=== PATIENT | female | born 1990 | race Caucasian/White ===

== ENCOUNTER 2017-09-11 21:41 | Emergency (ER) | payer SELFPAY ==
[2017-09-11 21:43] VITALS: BP 121/73; PULSE 81; RESP 14; TEMP 36.6; O2SAT 100; BMI 30.4
[2017-09-11 22:06] LABS: Bacteria 0 SEEN /hpf (None Seen); Mucous, Urine 0 SEEN /hpf (<or=2+); Red Blood Cells-Urine 0 SEEN /hpf (0-5)
[2017-09-11 22:07] LABS: Color, Urine Yellow (Yellow); Glucose, Dipstick Normal (Normal); Ketone-Dipstick Negative (Negative); Leukocyte Esterase-Dipstick 25 /ul (Negative); Nitrite-Dipstick Negative (Negative); Occult Blood-Urine 10 /ul (Negative); Protein-Dipstick Negative (Negative); Urine Bilirubin Dipstick Negative (Negative); Urine Clarity Clear (Clear); Urine Urobilinogen 1 mg/dl (Normal)
[2017-09-11 22:10] LABS: Internal QC Validated? YES +Cl - CLEAR BKGD; Pregnancy, Urine Negative Negative
[2017-09-11 22:14] LABS: Squamous Epithelial Cells - UA 0-5 SEEN /hpf (5-10); White Blood Cells 0-5 SEEN /hpf (0-5)
--- NOTE | 2017-09-11 22:35 | ED.VISSUMM ---
- ER Visit Summary Date of Service: 09/11/17 Chief Complaint: [] Possible kidney infection History of Present Illness: The patient is a 26 F [] complaining of possible kidney infection since yesterday. She has dysuria yesterday but not today. She has bilateral lower back soreness. Gradual onset sharp and aching and dull. She wanted to make sure she did not have a UTI. No home treatment. Denies or other symptoms Physical Examination: [] Vital signs reviewed General: Well-nourished well-developed Head: Normocephalic atraumatic Eyes: Pupils equal round and reactive to light extraocular movements intact ENT: TMs clear no hemotympanum no trauma Neck: Nontender full range of motion Cardiovascular: Regular rate rhythm no murmurs normal S1-S2 Respiratory: No distress clear to auscultation bilaterally chest nontender Abdomen: Soft nontender nondistended normal bowel sounds no masses Back: Nontender no CVA tenderness Extremities: Nontender active range of motion ?4 extremities no trauma Skin: Normal color no trauma Neuro alert oriented cranial nerves II through XII intact normal strength sensation reflexes Test Results: [] Emergency Department Course and Treatment: [] Is resting comfortably. She does have some soreness in her back when she moves. Urinalysis shows no evidence of infection no blood in the urine to suggest a kidney stone. is negative. Given Tylenol. At this time I think she strained her back. We will continue anti-inflammatories rest and ice. Treatment Plan: [] Disposition: [] Impression: [] Lumbar back strain This note was generated with [employer] dictation software. It may contain incorrect words, spelling, and punctuation that were not noted in review of the chart prior to signing ED Disposition - Plan for ED Patient: Chief Complaint: Flank Pain Referrals: Garrett Read MD [Primary Care Provider] -
--- NOTE | 2017-09-11 22:36 | ED.DEP ---
ED Disposition - Plan for ED Patient: Disposition: Home or Assisted Living Chief Complaint: Flank Pain Instructions: ED Sprain Strain Lumbar Referrals: Garrett Read MD [Primary Care Provider] -
[2017-09-11] MEDS: Acetaminophen 500 MG Tablet 1000 MG PO (22:37)
[2017-09-11 22:52] VITALS: BP 120/60; PULSE 82; RESP 18; O2SAT 99
== END 2017-09-11 22:52 | disposition home or self-care (01) ==
PROVIDERS: Emergency Medicine; Emergency Provider Emergency Medicine; Family Provider Family Medicine; PCP Family Medicine
DX: S39.012A Strain of muscle, fascia and tendon of lower back, initial encounter (principal); X58.XXXA Exposure to other specified factors, initial encounter; Y93.89 Activity, other specified; Y92.89 Other specified places as the place of occurrence of the external cause; Y99.8 Other external cause status
CPT/HCPCS: 81001; 81025; 99283

== ENCOUNTER → 2017-12-16 15:03 | Outpatient (CLI) | payer MEDICAID, SELFPAY ==
[2017-12-16 17:20] LABS: Hematocrit 35.9 % (37-47); Mean Corp Hgb Conc 33.4 g/gl (32-36); Mean Corpuscular Hgb 29.1 pg (27.0-32.0); Mean Corpuscular Volume 87.1 fL (81-99); Mean Platelet Vol. 11.5 fl (6.2-12.0); Platelet Count 171 K/mm3 (150-450); RBC Distribution Width CV 13.1 % (11.6-14.6); RBC Distribution Width SD 41.9 fl (35.1-43.9); Red Blood Count 4.12 M/mm3 (4.2-5.4); White Blood Count 7.5 K/mm3 (4.4-11.0)
[2017-12-16 17:21] LABS: Scan Indicated on CBC? Y/N NO
[2017-12-16 17:36] LABS: Thyroid Stim Hormone (TSH) 1.71 uIU/mL (0.358-3.74)
[2017-12-19 14:11] LABS: HPV Reflexed? NOT INDICATED
== END ==
PROVIDERS: Visit Provider Obstetrics & Gynecology
DX: N92.6 Irregular menstruation, unspecified (principal); Z12.4 Encounter for screening for malignant neoplasm of cervix
CPT/HCPCS: 36415; 84443; 85027; 88175; G0145

== ENCOUNTER 2018-04-10 20:44 | Emergency (ER) | payer MEDICAID, SELFPAY ==
[2018-04-10 20:45] VITALS: BP 142/70; PULSE 80; RESP 16; TEMP 36.7; O2SAT 99; BMI 26.6
--- NOTE | 2018-04-10 21:51 | ED.VISSUMM ---
- ER Visit Summary Date of Service: 04/10/18 Chief Complaint: Rectal bleeding History of Present Illness: The patient is a 27 F no dyspnea past medical history. He is never had a colonoscopy. Patient states tonight she went to the toilet to have a bowel movement and noticed brown stool mixed with blood. Denies any clots. There is bright red blood. No black stool. No nausea. No abdominal pain. She is never had rectal bleeding before. She denies any bruising, bleeding from her gums, nosebleeds or hematuria. She is on no blood thinners. She denies any rectal trauma. She denies any straining or having hard stools or constipation. She has no history of polyps or hemorrhoids. Denies feeling lightheaded or dizzy. Physical Examination: Young female no acute distress. Significant other present in the room. Vital signs are stable and afebrile. HEENT exam unremarkable. Neck nontender. Lungs clear to auscultation bilaterally. Heart regular rate and rhythm no murmur rate about 80. Abdomen soft. Nontender. Nondistended. Normal bowel sounds no peritoneal signs. Patient moving all 4 extremities. Neurovascular intact. Skin unremarkable. No petechiae or purpura. No bruising. No rashes. Neurologically she is awake alert with no focal motor deficit. Back exam is nontender. Rectal exam done with her male significant other present in the room she had noticed gross blood on rectal exam. There were no external hemorrhoids. I did not feel any internal rectal masses. I did not see if seizure. And clinically this is not a seizure. Test Results: None. Emergency Department Course and Treatment: Patient just had bleeding about an hour ago. It was not severe. I do not think a blood count is necessary. She will follow-up with the [facility] with Dr. Kaity Mendez for rectal bleeding and possible endoscopy. Treatment Plan: Return if feeling a lot worse or feels lightheaded. Otherwise warm soaks. Outpatient follow-up for possible endoscopy Disposition: Discharge Impression: Rectal bleeding of uncertain etiology This note was generated with [employer] dictation software. It may contain incorrect words, spelling, and punctuation that were not noted in review of the chart prior to signing ED Disposition - Plan for ED Patient: Referrals: Garrett Read MD [Primary Care Provider] -
--- NOTE | 2018-04-10 21:54 | ED.DCSUM_ITS ---
- ER Visit Summary Date of Service: 04/10/18 Chief Complaint: Rectal bleeding History of Present Illness: The patient is a 27 F no dyspnea past medical history. He is never had a colonoscopy. Patient states tonight she went to the toilet to have a bowel movement and noticed brown stool mixed with blood. Denies any clots. There is bright red blood. No black stool. No nausea. No abdominal pain. She is never had rectal bleeding before. She denies any bruising, bleeding from her gums, nosebleeds or hematuria. She is on no blood thinners. She denies any rectal trauma. She denies any straining or having hard stools or constipation. She has no history of polyps or hemorrhoids. Denies feeling lightheaded or dizzy. Physical Examination: Young female no acute distress. Significant other present in the room. Vital signs are stable and afebrile. HEENT exam unremarkable. Neck nontender. Lungs clear to auscultation bilaterally. Heart regular rate and rhythm no murmur rate about 80. Abdomen soft. Nontender. Nondistended. Normal bowel sounds no peritoneal signs. Patient moving all 4 extremities. Neurovascular intact. Skin unremarkable. No petechiae or purpura. No bruising. No rashes. Neurologically she is awake alert with no focal motor deficit. Back exam is nontender. Rectal exam done with her male significant other present in the room she had noticed gross blood on rectal exam. There were no external hemorrhoids. I did not feel any internal rectal masses. I did not see if seizure. And clinically this is not a seizure. Test Results: None. Emergency Department Course and Treatment: Patient just had bleeding about an hour ago. It was not severe. I do not think a blood count is necessary. She will follow-up with the [facility] with Dr. Kaity Mendez for rectal bleeding and possible endoscopy. Treatment Plan: Return if feeling a lot worse or feels lightheaded. Otherwise warm soaks. Outpatient follow-up for possible endoscopy Disposition: Discharge Impression: Rectal bleeding of uncertain etiology This note was generated with [employer] dictation software. It may contain incorrect words, spelling, and punctuation that were not noted in review of the chart prior to signing ED Disposition - Plan for ED Patient: Referrals: Garrett Read MD [Primary Care Provider] -
--- NOTE | 2018-04-10 21:54 | ED.DEP ---
ED Disposition - Plan for ED Patient: Disposition: Home or Assisted Living Instructions: ED Hematochezia Stable Referrals: Kaity Mendez MD [STAFF PHYSICIAN] - As soon as possible Additional Instructions: Call follow-up with the [facility] in [place] for possible colonoscopy to see if they see any source of bleeding such as a polyp, internal hemorrhoid or other. You may have some more bleeding elicits severe or you feel lightheaded or dizzy follow-up as an outpatient. If you are feeling worse return to the ER.
[2018-04-10 21:57] VITALS: RESP 16
== END 2018-04-10 21:58 | disposition home or self-care (01) ==
PROVIDERS: Emergency Provider Emergency Medicine; Family Provider Family Medicine; PCP Family Medicine
DX: K62.5 Hemorrhage of anus and rectum (principal)
CPT/HCPCS: 99282

== ENCOUNTER 2018-07-22 10:14 | Day surgery (SDC) | payer MEDICAID, SELFPAY ==
--- NOTE | 2018-07-16 13:49 | PCM.HPOB.BLA ---
History and Physical Date of Admission: 07/22/18 LORE COUGHLIN Date of : 1990 PREOP HISTORY AND PHYSICAL EXAM On 07/16/2018, Lore Coughlin, a 27 year old female 4 1 1 0 5, presented for: -- Lore is being seen for pre op visit. Pt to have LAVH/BS on 07-22-18. Medications and allergies are up to date. Consents signed for surgery and information reviewed. AM -- irregular bleeding which is ongoing. Lore claims it started gradually and has been present on going. It occurs all the time. It is located in the vagina and is non-radiating. Lore characterizes the quality of the irregular bleeding as passing clots, heavy bleeding. Severity is worsening. An associated sign and symptom is passing clots, pain. Additional comment: patient tried OCP but no relief. As above. Here for preop appt prior to planned LAVH, bilateral salpingectomy. She has irregular bleeding, pain and painful periods. Prior BTO by William nuñez. Reviewed R,B,A of planned procedure. Discussed anticipated preop, operative, and postop courses including activity restrictions. EB ALLERGIES: NKDA MEDICATIONS HISTORY: Current medications prescribed by our practice are: 1. Anaprox DS 550 mg tablet, 1 po bid prn dysmenorrhea REVIEW OF SYSTEMS: GENERAL - Denies fever, or chills SKIN - Denies skin changes EYES - Denies visual changes EARS - Denies difficulty hearing NOSE - Denies nasal congestion or bleeding MOUTH - Denies sore throat or difficulty swallowing NECK - Denies pain or swelling RESPIRATORY - Denies shortness of breath or wheezing CARDIOVASCULAR - Denies palpitations or chest pain GASTROINTESTINAL - Denies nausea, vomiting, diarrhea, constipation GENITOURINARY - Denies dysuria, frequency of urination, incontinence of urine MUSCULOSKELETAL - Denies joint or muscle pain NEUROLOGICAL - Denies localized numbness or weakness PSYCHIATRIC - Denies depression or anxiety ENDOCRINE - Denies heat or cold intolerance, weight loss or gain HEMATO-IMMUNOLOGIC - Denies excessive bleeding with cuts SURGICAL HISTORY: 1. 10/26/2013 JENNIFER Corona M.D. 2. 03/01/2015 Lap BTO with William Corona M.D. MENSTRUAL HISTORY: LMP Known?- DefiniteAmount/Duration - prolonged, Regularity - bleeds between periods, LMP - 05/10/18, Age Onset Menarche - 12 FAMILY HISTORY: Maternal Grandparent - Kidney disorder; Maternal Grandparent - FH: Diabetes mellitus type 2; Maternal Grandparent - CVA; Paternal Grandparent - FH: Diabetes mellitus type 2; SOCIAL HISTORY: Alcohol Use - denies drinking Smoking - Never Diet - balanced Diet Lifestyle - low stress lifestyle Exercise - yoga, 5x wk Seat Belt Use - always Employer - [employer] Illicit Drug Use - denies use of street drugs Sexual Activity - single sexual partner Residence - with SO and and children Place of - [place] Spouse-Sig Other Name - Sunny Ced Spouse-Sig Other Occupation - [employer] Spouse-Sig Other Phone No - [phone] Children Name(s) - Pradip (EB), Fausto (EB), Akbar (), Julieth (EB), Khang (EB) Control - vasectomy and tubal PHYSICAL EXAMINATION BP- 102/70 Sitting, Right arm, regular cuff Temp- 98.2 Taken Orally Weight- 178.00 lbs Height- 65.00 inch BMI:29.68 CONSTITUTIONAL - NAD, well nourished, and well developed HEENT - Normocephalic, PERRLA, EOMI NECK - no nuchal rigidity LUNGS - normal respiratory rate and rhythm EXTREMITIES - No edema or calf tenderness NEUROLOGICAL - Cranial nerves II-XII grossly intact PSYCHIATRIC - A and O to time, place, person, mood and affect ASSESSMENT: 1. Dysmenorrhea 2. Other Specified Irregular Menstruation 3. Pelvic And Perineal Pain PLAN BY DIAGNOSIS: 1. Irregular Menstruation, Unspecified Advised of options for treatment at prior visit Not a good candidate for endometrial ablation due to age and higher likelihood of postablative syndrome.failure of procedure. Seasonique, Jolessa, Loestrin 24, LoOvral, Mirena, NuvaRing, OrthoEvra, Sprintec, Trivora. Declines further medical management. TSH WNL in Dec 2017 prefers hysterectomy. Reviewed R,B,A of LAVH and bilateral salpingectomy. Advised of anticipated preop, operative and postop recovery including activity restrictions. Plan for LAVH, bilateral salpingectomy and removal of Filshie clips as scheduled. RTO for postop appt in 2 wks. The visit was approximately 25 minutes in length with most of the time spent in discussion and counseling. 2. Dysmenorrhea and Pelvic And Perineal Pain States painful all month long. Sleeps with heating pad Diff dx reviewed. In light of her irregular bleeding and failed trial of multiple hormonal contraceptive methods to control pain and bleeding, suspect adenomyosis plan for LAVH, bilateral salpingectomy with evaluation of pelvis for endometriosis, adhesions as source of pelvic pain Ovaries to remain in place. All questions re procedure answered to her satisfaction. Consents signed and on chart. Medication(s) Stopped/Reason: Anaprox DS 550 mg tablet - No Longer Needed
[2018-07-16 14:31] LABS: Hematocrit 38.1 % (37-47); Hemoglobin 12.8 g/dl (12.0-15.0); Mean Corp Hgb Conc 33.6 g/gl (32-36); Mean Corpuscular Hgb 29.3 pg (27.0-32.0); Mean Corpuscular Volume 87.2 fL (81-99); Mean Platelet Vol. 11.2 fl (6.2-12.0); Platelet Count 164 K/mm3 (150-450); RBC Distribution Width CV 12.5 % (11.6-14.6); RBC Distribution Width SD 40.3 fl (35.1-43.9); Red Blood Count 4.37 M/mm3 (4.2-5.4); White Blood Count 6.9 K/mm3 (4.4-11.0)
[2018-07-16 14:32] LABS: Scan Indicated on CBC? Y/N NO
[2018-07-16 14:45] LABS: International Normalized Ratio 1.1; Prothrombin Time (Protime)PT. 13.8 SECONDS (11.7-14.9)
[2018-07-16 14:46] LABS: Partial Thromboplast Time 30.8 Seconds (24.1-36.2)
[2018-07-16 14:47] LABS: Internal QC Validated? YES +Cl - CLEAR BKGD; Pregnancy, Serum, hCG Quali. NEGATIVE Negative
[2018-07-22] VITALS (9 sets, daily range): BP systolic 93–119; BP diastolic 55–78; PULSE 58–80; RESP 16–20; TEMP 36.4–37.2; O2SAT 96–100; BMI 28.7
[2018-07-22 10:42] LABS: Internal QC Validated? YES +Cl - CLEAR BKGD; Pregnancy, Urine Negative Negative
--- NOTE | 2018-07-22 12:23 | PCM.DC.VHY ---
Discharge Diet: No Restrictions Discharge Activity: May Shower, May Take a Tub Bath May resume sexual activity in: 4-6 weeks Lifting Restrictions: 20 pounds or less for 4-6 wk to allow healing Call your doctor if you observe: Fever of 101 or Higher, Inability to have a bowel movement, Using more than one pad per hour, Uncontrolled pain Change Dressing in (Days):: 7 Remove Dressing in (days):: 7 Cleanse incision/area with: Soap & Water, Do not get Incision Wet Allergies/Adverse Reactions: Allergies No Known Allergies Allergy (Verified 07/15/18 09:54) Medications to take at Discharge Docusate Sodium [Colace] 100 mg PO BID #30 capsule 07/22/18 Naproxen [Naprosyn] 250 - 500 mg PO TID PRN PRN #30 tablet 07/22/18 Oxycodone [Oxyir] 5 mg PO Q6H PRN PRN 4 Days #15 tablet 07/22/18 Polyethylene Glycol 3350 [Miralax] 17 gm PO DAILY PRN #14 packet 07/22/18 The following prescriptions were given: Oxycodone [Oxyir] 5 mg PO Q6H PRN PRN 4 Days #15 tablet PRN Reason: Mod-Severe Pain (4-10/10) Naproxen [Naprosyn] 250 - 500 mg PO TID PRN PRN #30 tablet PRN Reason: Mild-Mod Pain (1-5/10) Polyethylene Glycol 3350 [Miralax] 17 gm PO DAILY PRN #14 packet PRN Reason: Constipation Docusate Sodium [Colace] 100 mg PO BID #30 capsule Primary Care Physician: Garrett Read MD [Primary Care Provider] - Test Results: Test results from this visit will be discussed in further detail at your follow-up appointment, if applicable. Please Follow Up With: Jes Corona MD - [phone] When: in two weeks for postop check up as planned Proposed Discharge Date: 07/23/18
--- NOTE | 2018-07-22 12:26 | DCINST_ITS ---
Discharge Diet: No Restrictions Discharge Activity: May Shower, May Take a Tub Bath May resume sexual activity in: 4-6 weeks Lifting Restrictions: 20 pounds or less for 4-6 wk to allow healing Call your doctor if you observe: Fever of 101 or Higher, Inability to have a bowel movement, Using more than one pad per hour, Uncontrolled pain Change Dressing in (Days):: 7 Remove Dressing in (days):: 7 Cleanse incision/area with: Soap & Water, Do not get Incision Wet Allergies/Adverse Reactions: Allergies No Known Allergies Allergy (Verified 07/15/18 09:54) Medications to take at Discharge Docusate Sodium [Colace] 100 mg PO BID #30 capsule 07/22/18 Naproxen [Naprosyn] 250 - 500 mg PO TID PRN PRN #30 tablet 07/22/18 Oxycodone [Oxyir] 5 mg PO Q6H PRN PRN 4 Days #15 tablet 07/22/18 Polyethylene Glycol 3350 [Miralax] 17 gm PO DAILY PRN #14 packet 07/22/18 The following prescriptions were given: Oxycodone [Oxyir] 5 mg PO Q6H PRN PRN 4 Days #15 tablet PRN Reason: Mod-Severe Pain (4-10/10) Naproxen [Naprosyn] 250 - 500 mg PO TID PRN PRN #30 tablet PRN Reason: Mild-Mod Pain (1-5/10) Polyethylene Glycol 3350 [Miralax] 17 gm PO DAILY PRN #14 packet PRN Reason: Constipation Docusate Sodium [Colace] 100 mg PO BID #30 capsule Primary Care Physician: Garrett Read MD [Primary Care Provider] - Test Results: Test results from this visit will be discussed in further detail at your follow- up appointment, if applicable. Please Follow Up With: Jes Corona MD - [phone] When: in two weeks for postop check up as planned Proposed Discharge Date: 07/23/18
--- NOTE | 2018-07-22 12:30 | HYST_PTH ---
PATIENT: LORE FERNANDEZ LOC: [facility] [place] U#:[id number] AGE/SX: 27/F ROOM: RE07/22/[address]: Dr. Jes Corona MD : 1990 BED: DIS: 07/23/2018 SPEC #: [id number] RECD: 07/22/18 15:30 STATUS: ASHLEY TESSA #: [id number] SHIRLEY: 07/22/18 12:[address]: Jes Corona DEPT: SURGICAL PATHOLOGY RECD BY: Brando Wolf ENTERED: 07/23/18 11:04 SP TYPE: HYSTERECT OTHR DR: Dr. Garrett Read MD Tissues: Uterus, NOS Procedures: Surgery Specimen Level V HEADER OPERATION: Hysterectomy, lap-assisted vaginal, salpingectomy PRE-OP DIAGNOSIS: Irregular menstruation, dysmenorrhea, pelvic and perineal pain TISSUE SUBMITTED: Uterus, cervix, bilateral fallopian tubes MICROSCOPIC DIAGNOSIS Uterus, cervix and bilateral fallopian tubes, vaginal hysterectomy and bilateral salpingectomy: Cervix - chronic inflammation. - Negative for dysplasia. Endometrium - secretory endometrium. Myometrium - focal adenomyosis. Bilateral fallopian tubes - no pathologic diagnosis. SJ:joselito 07/27/18 COMMENT The entire cervix is examined. Please make reference to previous specimen ([id number]) cervix, LEEP conization with diagnosis of mild and moderate dysplasia with PV changes. MICROSCOPIC DESCRIPTION Slides are reviewed. GROSS DESCRIPTION Received in fixative is one container labeled with the patient's name and designated uterus. The specimen consists of a morcellated uterus received in seven fragments ranging in size from 1 cm to 10 cm and in aggregate weighing 287 gm. The ectocervical fragment is grossly unremarkable. The presumed endometrial cavity measures 4.5 cm in length and is grossly unremarkable. The reddish-javed, velvety endometrium measures up to 0.2 cm in thickness. The myometrium measures 3 cm in average thickness and does not appear to contains mass lesions. Two segments of fallopian tubes with an average length of 4.5 cm and average diameter of 1 cm in present and both appear to contain fimbriated ends that are grossly unremarkable. Sand Mixer sections are submitted as follows: 1 & 2 - cervix and endocervix, 3-8 - endometrium/myometrium, 9 - one fallopian tube, 10 - the other fallopian tube. / AM:joselito 07/23/18 The rest of the cervix is submitted in six more cassettes, 11-16. / SJ:joselito 07/24/18 TC:5 CPT: 31782
[2018-07-22] MEDS: Bupiv/Epi 0.5% Mpf 30 ML Vial (13:13)
[2018-07-22] MEDS: Ketorolac 30 MG/ML Syringe IV ×3 (15:30→23:12)
[2018-07-22] MEDS: Lactated Ringers 1,000 ML 125 ML IV ×2 (15:44→23:09)
[2018-07-22] MEDS: Acetaminophen 500 MG Tablet 1000 MG PO (16:32)
[2018-07-22] MEDS: oxyCODONE 5 MG Tablet PO (20:52)
--- NOTE | 2018-07-22 22:10 | NURSING ---
pt sat at bedside with 2 staff assist tolerated without difficulty then up and ambulated x2 laps in rai. gait steady, no dizziness. returned to bed with rail walker assist
[2018-07-22] MEDS: 0.9% NaCl Peripheral Flush Adult/Peds IV (23:12)
[2018-07-23 03:35] VITALS: BP 108/65; PULSE 77; RESP 16; TEMP 36.7; O2SAT 98
[2018-07-23 05:18] LABS: Hematocrit 34.5 % (37-47); Hemoglobin 11.9 g/dl (12.0-15.0); Mean Corp Hgb Conc 34.5 g/gl (32-36); Mean Corpuscular Hgb 29.8 pg (27.0-32.0); Mean Corpuscular Volume 86.3 fL (81-99); Mean Platelet Vol. 10.9 fl (6.2-12.0); Platelet Count 164 K/mm3 (150-450); RBC Distribution Width CV 12.4 % (11.6-14.6); RBC Distribution Width SD 38.3 fl (35.1-43.9)
[2018-07-23 05:21] LABS: Scan Indicated on CBC? Y/N NO
[2018-07-23] MEDS: Ketorolac 10 MG Tablet PO (06:47)
--- NOTE | 2018-07-23 08:25 | OP.PCM_ITS ---
Report of Operation Date of Procedure: 07/22/18 Pre-Operative Diagnosis: Chronic pelvic pain, dysmenorrhea, irregular bleeding Post-Operative Diagnosis: Same Surgery/Procedure Performed:: LAVH, Bilateral salpingectomy Description of Surgical Findings:: Findings: On exam under anesthesia, the cervix appears well supported, parous, with a possible fibroid at posterior lip. At Laparoscopy: the uterus is enlarged and fills the pelvis with a large intramural fibroid at the posterior fundus. There are no significant adhesions in the pelvis . There are normal appearing fallopian tubes and ovaries bilaterally. motorcycle police officer: Margy Aguila Type of Anesthesia:: General Anesthesiologist: Minnie Pierce - DENISE Specimen's removed: Uterus, bilateral fallopian tubes Drains: Adams Estimated Blood Loss (mL): 70 Fluids Replaced: 150 Description of Procedure: Narrative account: After the risks, benefits and alternatives of the procedure were reviewed with the patient , informed consent was obtained. The patient was taken to the Operating room with an IV running . She was positioned in the dorsal supine position on the operating table and given general anesthesia. Once asleep she was positioned to the dorsal lithotomy position with the arms tucked at the sides and prepped and draped in the usual sterile fashion. A Adams catheter was inserted to drain the bladder. The weighted speculum was placed into the vagina and a single tooth tenaculum was placed at the cervix. A Nestor cannula was inserted into the cervix and secured into placed with the single - toothed tenaculum. Attention was then turned to the anterior abdominal wall. the concrete paving machine operator's gloved were changed and skin incisions were created at the infraumbilical and suprapubic skin and at a point approximately nursing home between the suprapubic and infraumbilical skin incisions. Local anesthesia was used to infiltrate the skin where the trocar incision sites were created. A vertical 5 mm infraumbilical skin incision , a transverse 5 mm suprapubic incision and an transverse 5 mm midline incision were created. A Veress needle was inserted in to the peritoneal cavity at the infraumbilical skin incision while maintaining upward traction of the anterior abdominal wall at the umbilicus. There was free drop of saline, free flow of CO2 and low opening pressure noted. Once the intraabdominal pressure had reached approximately 15 mm HG, the Veress needle was removed and a bladeless 5 mm trocar was inserted into the peritoneal cavity. Correct placement was confirmed using the laparoscope. Under direct visualization the other two 5 mm bladeless trocars were inserted into the peritoneal cavity. The fallopian tubes were retracted medially and using a LigaSure device the fallopian tube was divided from the ovary and the mesosalpinx, leaving the fallopian tube free at each side of the uterus other than the attachment to the uterus. The uteroovarian pedicles were then divided using a [place] Ligasure device. The broad ligament was then divided down to the level of the round ligament on both sides. At this point the laparoscopic portion of the case was completed. The trocars were left in place, but the instruments were removed and gas turned off. A sterile drape was used to cover the abdomen. Attention was then turned to the vaginal portion of the case. The Nestor cannula was removed and the single toothed tenaculum repositioned on the cervix. The cervical mucosal was then incised circumferentially using Bovie cautery and a knife. The posterior cul de sac was entered by sharp dissection with Rea scissors and a weighted speculum was placed into the posterior cul se sac. Dissection then was initiated at the anterior cervix to enter the anterior cul se sac. The uterosacral ligaments were clamped bilaterally with curved Rodolfo clamps and the pedicles divided and suture ligated and tagged for later identification. Next the cardinal ligament was clamped bilaterally and divided and suture ligated. Adequate hemostasis was noted. The anterior cul de sac peritoneum was then entered by sharp dissection and a narrow [place] retractor was placed into the anterior cul de sac to retract the bladder out of harm's way for the remainder of the case. The uterine arteries were clamped bilaterally , divided and suture ligated. At this point little descensus was noted due to the enlarged uterus, and morcellation was begun. Each section was removed by using either the knife or a rea scissors. The cervix and sequential portions of the lower uterine segment anteriorly and posteriorly as well as several separate fibroids were removed and set aside. Dissection then continued along each side of the uterus. Each pedicle was secured with a Rodolfo clamp, divided and suture ligated until ultimately the uterine fundus was reached. The superior pedicles on each side were secured with a curved Rodolfo clamp and the remaining uterus and attached fallopian tubes were surgically amputated and set aside. The superior pedicle was then suture ligated, then free tied and tagged for identification. The superior pedicles were dry. There was bleeding noted along the posterior vaginal cuff . The peritoneum was then closed with a running purse string suture of 1 Vicryl, incorporating the superior pedicles and uterosacral ligament tags. Excellent hemostasis was noted. The vaginal cuff was then reapproximated using interrupted and figure of eight stitches of 1 Vicryl. Excellent hemostasis was noted. The Adams was attached to the Adams bag. and clear yellow urine returned. A second look was performed with the laparoscope: excellent hemostasis was noted at all pedicles and at the vaginal cuff. Max was sprayed along the cuff and pedicles for additional hemostasis. The pneumoperitoneum was reduced and all instruments and trocars were removed. The skin incisions were closed with 4-0 Monocryl in a subcuticular fashion. Sterile dressings were applied. (op sites) The patient was returned to dorsal supine position and awakened from general anesthesia. She was then transferred to the recovery room bed in stable condition after tolerating the procedure well. Sponge, lap, needle and instrument counts correct times two. Medications given preop and intraoperatively included: Cefotetan IV was given corporate concierge to the operating room , Marcaine with 1/200,00 epinephrine was used as a subcutaneous injection at the trocar skin incision sites, and Toradol 30 mg IV x one was given. For a complete listing of medications given preop and intraoperatively, please see the anesthesia record. - Complications None - Admit VTE Documentation VTE Present on Admission: No VTE Mechan Device Prophylaxis: SCD's VTE Pharm Prophylaxis ordered?: Yes
--- NOTE | 2018-07-23 08:32 | PCM.PN.OB ---
Subjective: POD#1 LAVH, Bilateral salpingectomy Reviewed surgical findings: enlarged uterus normal fallopian tubes, prior BTO. Filmy pelvic and intra-abdominal adhesions. Doing well. Adams out and has voided. Up to bathroom without dizziness. Feeling well. Pain control OK -- about 4/10 pain scale at present. Tolerated reg breakfast. no N/V. Denies shoulder or neck pain. Objective: Lying in bed NAD. Talking and interactive. Asking about going to see her son's final softball game tonight (if no cancelled by weather) - Physical Exam General: Alert, Oriented x3, Cooperative, No apparent distress HEENT: Atraumatic Neck: Supple Abdomen: Soft - Flat, minimally tender c/w postop status. Skin: Incision - Op sites CDI Neurological: Cranial nerves II-XII grossly intact Psych/Mental Status: Normal Affect Vital Signs Temp Pulse Resp BP Pulse Ox 98.1 F 77 16 108/65 98 07/23/18 03:35 07/23/18 03:35 07/23/18 03:35 07/23/18 03:35 07/23/18 03:35 Oxygen Delivery Method Room Air Weight: 80.8 kg Body Mass Index (BMI) 28.7 Intake and Output for Last 24 Hours /11/19 //19 07/23/18 23:59 23:59 23:59 Intake Total 3239 / 3239 Output Total 800 / 800 2300 / 2300 Balance 2439 / 2439 -2300 / -2300 Laboratory Tests Past 24 Hrs //07/23/18 10:30 04:56 WBC 16.0 H RBC 4.00 L Hgb 11.9 L Hct 34.5 L MCV 86.3 MCH 29.8 MCHC 34.5 RDW 12.4 RDW Differential 38.3 Plt Count 164 MPV 10.9 Urine Test Negative Medical Necessity - Tobacco Use Smoking Status: Never smoker Assessment/Plan POD#1 S/P LAVH, Bilateral salpingectomy Stable postop Home today. RTO in 2 wk for postop check, prn sooner.
[2018-07-23 09:30] VITALS: BP 105/68; PULSE 68; RESP 16; TEMP 36.7; O2SAT 100
[2018-07-23 09:35] VITALS: PULSE 68
== END 2018-07-23 08:19 | disposition home or self-care (01) ==
LOC: SDC 10:14 → AC 10:15 → MS2 12:22
PROVIDERS: Family Provider Family Medicine; PCP Family Medicine; Referring Provider Obstetrics & Gynecology; Visit Provider Obstetrics & Gynecology
PROC: 0UT9FZZ Resection of Uterus, Via Natural or Artificial Opening With Percutaneous Endoscopic Assistance (ICD-10-PCS; CPT 58554; principal; 2018-07-22 12:05)
DX: N80.0 Endometriosis of uterus (principal); N72 Inflammatory disease of cervix uteri
CPT/HCPCS: 58554; 36415; 81025; 84703; 85027; 85610; 85730; 86850; 86900; 88307; J7120; A4216; J2405

== ENCOUNTER 2019-07-02 11:03 | Emergency (ER) | payer SELFPAY ==
[2018-07-22 10:37] VITALS: BMI 28.7
[2019-07-02 11:04] VITALS: BP 127/73; PULSE 74; RESP 12; TEMP 36.8; O2SAT 100; BMI 26.2
--- NOTE | 2019-07-02 11:14 | CT_ITS ---
STUDY: CT ABDOMEN AND PELVIS WITHOUT CONTRAST REASON FOR EXAM: Female, 28 years old. RT FLANK/GROING/ABD PAIN TODAY, HYSTERECTOMY RADIATION DOSAGE (If Supplied By Facility): CTDIvol = ( 9.79 ) mGy, DLP = ( 508.44 ) mGycm TECHNIQUE: Transaxial images were obtained from the dome of the diaphragm to the symphysis pubis without oral contrast, and without intravenous contrast. Sagittal and coronal images were reconstructed. Individualized dose optimization techniques were used for this CT. Mild respiratory motion artifact is present. COMPARISON: None. FINDINGS: The visualized lung bases are unremarkable. Normal liver. No intrahepatic biliary duct dilatation or liver mass. A large 1.8 cm gallstone is present. No visualized gallbladder wall thickening or pericholecystic fluid. Normal spleen. Normal pancreas. Normal bilateral adrenal glands. Normal right kidney. Normal left kidney. No hydronephrosis or renal masses. No large stones. Normal visualized stomach. Normal small intestine. Normal colon. No bowel dilatation or obstruction. No free air or free fluid. The appendix is visualized and appears normal. Normal abdominal aorta. Normal inferior vena cava. Normal retroperitoneum. Normal urinary bladder. There is absence of the uterus consistent with a prior hysterectomy. Grossly normal appearing bilateral ovaries. Small follicular cyst of the left ovary noted. Normal abdominal wall. There are minor degenerative changes and scoliosis of the visualized lumbar spine. CT/Abdomen/Pelvis W IV Cont ONLY IMPRESSION: 1. No demonstrated acute or significant process abdomen and pelvis. 2. Large 1.8 cm gallstone. Electronically Signed: Yasmani Silva MD at 12:30 EDT , Service support ,
--- NOTE | 2019-07-02 11:15 | ED.VIS.GEN ---
History of Present Illness Chief Complaint: Abd Pain Informant: Patient Onset: Today - Patient reports pain that is in the proximity McBurney's point, Yesterday - Yesterday complained of pain that she localizes to the right flank Context: Sudden Onset Timing: Continuous, Waxes and wanes Quality: Pain Location: Presently right lower quadrant Current Severity: Moderate Maximum Severity: Severe Worsened by: Movement Relieved by: Nothing Associated Symptoms: Nausea and loss of appetite Narrative: Patient is a 28-year-old female status post hysterectomy who presents with right flank pain that started yesterday. Pain has localized to the right lower quadrant. Patient reports nausea without vomiting or diarrhea. She has decreased appetite. There is no history of renal or ureterolithiasis. She denies dysuria, frequency, urgency or hematuria. She states she took a laxative because she thought she had constipation. This morning she noted blood on toilet paper. She has no history of hemorrhoids. There is no history of inflammatory bowel disorder. Patient denies any URI symptoms. She denies chest pain. There is no history of trauma. She has not noted a rash. There is no family history of renal ureterolithiasis. She denies history of endometriosis or ovarian cyst. Prior similar symptoms: No Recent Illness/Hospitalization: No - Past Medical History (1) No pertinent past medical history Status: Acute Past Medical History - Allergies and Home Meds Allergies/Adverse Reactions: Allergies No Known Allergies Allergy (Verified 07/02/19 11:06) Primary Care Physician: Garrett Read MD [Primary Care Provider] - Surgical History: hysterectomy Lives: With Family Smoking Status: Never smoker Alcohol: None Drugs: None Review of Systems General: Reports: Malaise. Denies: Chills, Fever, Subjective, Sweats Eyes: Denies: Visual changes - bilaterally, Blurred Vision - bilaterally ENT: Denies: Bilateral ear pain, Rhinorrhea, Sore throat Cardiovascular: Denies: Chest pain, Palpitations Respiratory: Denies: Dyspnea, Cough, Dyspnea on exertion Gastrointestinal: Reports: Abdominal pain, Nausea. Denies: Vomiting, Diarrhea, Constipation, Melena, Hematochezia Genitourinary: Denies: Dysuria, Hematuria, Frequency Musculoskeletal: Reports: Back pain. Denies: Myalgias, Arthralgias, Neck pain, Swelling, Extremity Pain Skin: Denies: Rash, Wounds Neurological: Denies: Headache, Weakness, Numbness Endocrine: Denies: Polyuria, Polydipsia Hematologic: Denies: Easy bruising, Easy bleeding Physical Exam Vital Signs/Narrative: Vital Signs Temp Pulse Resp BP Pulse Ox 07/02/19 11:04 98.2 F 74 12 127/73 H 100 Inital Vital Signs reviewed: Yes General: Well nourished, Well developed, - - Appears uncomfortable. She moves gingerly. Head: Normocephalic, Atraumatic Eyes: Perrl, EOMI. Negative for: Pale conjunctiva, Scleral icterus ENT: Moist mucous membranes, No rhinorrhea, Nasal congestion Neck: Supple, Nontender, No lymphadenopathy, No JVD Cardiovascular: Regular rate, Regular rhythm, No murmurs, Normal S1, Normal S2 Respiratory: No distress, CTA bilaterally, Chest nontender Abdomen: Soft, Nondistended, No masses, Tender, Guarding, Rebound tenderness, Hypoactive bowel sounds, Rovsig's sign. Negative for: Nontender, Normal bowel sounds, Hyperactive bowel sounds, Hepatomegaly, Splenomegaly, Mass, Pulsatile mass, Ventral hernia, Umbilical hernia Rectal: Deferred Back: Nontender, Normal Inspection, CVA tenderness - Right side. Negative for: Spinal tenderness Extremities: Nontender, No edema Skin: Normal color, No rash, No Trauma. Negative for: Cyanosis, Diaphoresis, Jaundice Neurological: Alert, Oriented x3, Cranial nerves II-XII grossly intact, Normal Strength, Normal Sensation Psychological: Normal affect, Normal Mood Diagnostic/Tx/Re-eval Impressions Abdomen/Pelvis CT 07/02/19 11:14 IMPRESSION: 1. No demonstrated acute or significant process abdomen and pelvis. 2. Large 1.8 cm gallstone. Electronically Signed: Yasmani Silva MD at 12:30 EDT , Service support , 07/02/19 11:14 Abdomen/Pelvis W IV Cont ONLY [CT] Stat Laboratory Results 07/02/19 07/02/19 07/02/19 11:20 11:26 11:26 WBC 6.8 RBC 4.25 Hgb 12.8 Hct 38.4 MCV 90.4 MCH 30.1 MCHC 33.3 RDW Std Deviation 42.1 RDW Coeff of Foreign 12.8 Plt Count 151 MPV 11.2 Immature Gran % (Auto) 0.100 Neut % (Auto) 67.3 Lymph % (Auto) 26.1 Mineral % (Auto) 5.9 Eos % (Auto) 0.3 Baso % (Auto) 0.3 Absolute Neuts (auto) 4.6 Absolute Lymphs (auto) 1.78 Nucleated RBC % 0 Sodium 141 Potassium 3.8 Chloride 109 H Carbon Dioxide 26.0 Anion Gap 6 BUN 13 Creatinine 0.69 Estim Creat Clear Calc 113.63 Est GFR (MDRD) Af Amer 130 Est GFR (MDRD) Non-Af 107 BUN/Creatinine Ratio 18.9 Glucose 94 Calcium 9.4 Total Bilirubin Direct Bilirubin AST ALT Alkaline Phosphatase Total Protein Albumin Globulin Lipase Urine Color Yellow Urine Clarity Sl. Cloudy Urine pH 5.0 Ur Specific Morris 1.030 Urine Protein 30 H Urine Glucose (UA) Normal Urine Ketones 150 H Urine Occult Blood 25 H Urine Nitrite Negative Urine Bilirubin Negative Urine Urobilinogen 1 H Ur Leukocyte Esterase 100 H Urine RBC 0 SEEN Urine WBC 0-5 SEEN Ur Squamous Epith Cells 10-25 SEEN Urine Bacteria 1+ Urine Mucus 0 SEEN 07/02/19 07/02/19 11:26 11:26 WBC RBC Hgb Hct MCV MCH MCHC RDW Std Deviation RDW Coeff of Foreign Plt Count MPV Immature Gran % (Auto) Neut % (Auto) Lymph % (Auto) Mineral % (Auto) Eos % (Auto) Baso % (Auto) Absolute Neuts (auto) Absolute Lymphs (auto) Nucleated RBC % Sodium Potassium Chloride Carbon Dioxide Anion Gap BUN Creatinine Estim Creat Clear Calc Est GFR (MDRD) Af Amer Est GFR (MDRD) Non-Af BUN/Creatinine Ratio Glucose Calcium Total Bilirubin 1.50 H Direct Bilirubin 0.34 H AST 16 ALT 17 Alkaline Phosphatase 71 Total Protein 8.4 H Albumin 4.2 Globulin 4.2 Lipase 85 Urine Color Urine Clarity Urine pH Ur Specific Morris Urine Protein Urine Glucose (UA) Urine Ketones Urine Occult Blood Urine Nitrite Urine Bilirubin Urine Urobilinogen Ur Leukocyte Esterase Urine RBC Urine WBC Ur Squamous Epith Cells Urine Bacteria Urine Mucus Review of CT of the abdomen pelvis revealed a large gallstone. Patient was reexamined. There is minimal tenderness in the right upper quadrant. Negative Henao sign. Hepatic and lipase panel were ordered. Patient ALT and AST and alk phos are normal. Total bili is 1.5. Patient informed she is on a ketotic diet to lose weight. She is been a contact diet for the last 2 to 3 months. Since she is pain-free with minimal discomfort in the right upper quadrant only will discharge with appropriate home-going instructions and referral to Dr. Abdi Allen who is on for general surgery. - Medical Decision Making Differential diagnosis includes atypical presentation for appendicitis, obstructing ureteral stone, ovarian cyst, Crohn's disease, mesenteric adenitis. IV was established and to receive a fluid bolus. Since there is significant probability that patient may have appendicitis COVID test was obtained. Appropriate blood work was ordered as well as CT of the abdomen with IV contrast. She was medicated with IV morphine for her discomfort. ED Disposition - Plan for ED Patient: Disposition: Home or Assisted Living Diagnosis: Biliary colic, Cholelithiasis Instructions: ED Gallstones with Biliary Colic Referrals: Garrett Read MD [Primary Care Provider] - Abhijit Allen MD [STAFF PHYSICIAN] - 5-7 Days
[2019-07-02] MEDS: 0.9% Normal Saline 1,000 ML 1000 ML IV (11:31)
[2019-07-02 11:39] LABS: Mucous, Urine 0 SEEN /hpf (<or=2+); Red Blood Cells-Urine 0 SEEN /hpf (0-5)
[2019-07-02 11:40] LABS: Absolute Lymphocyte Count 1.78 X10^3/uL (0.83-4.51); Absolute Neutrophil Count 4.6 X10^3/uL (2.0-7.7); Basophil# 0.02 X10^3/uL; Basophil% 0.3 % (0-1); Eosinophil# 0.02 X10^3/uL; Eosinophils% 0.3 % (0-5); Hematocrit 38.4 % (37-47); Hemoglobin 12.8 g/dL (12.0-15.0); Lymphocyte # 1.78 X10^3/ul (4.0); Lymphocyte % 26.1 % (19-41); Mean Corp Hgb Conc 33.3 g/dL (32-36); Mean Corpuscular Hgb 30.1 pg (27.0-32.0); Mean Corpuscular Volume 90.4 fL (81-99); Mean Platelet Vol. 11.2 fl (6.2-12.0); Monocyte% 5.9 % (0-10); NRBC Flagged by Analyzer 0 % (0-5); Neutrophil # 4.59 X10^3/uL (2.7-7.7); Neutrophil % 67.3 % (47-70); Platelet Count 151 K/mm3 (150-450); RBC Distribution Width CV 12.8 % (11.6-14.6); RBC Distribution Width SD 42.1 fl (35.1-43.9); Red Blood Count 4.25 M/mm3 (4.2-5.4); White Blood Count 6.8 K/mm3 (4.4-11.0)
[2019-07-02 11:40] LABS: Color, Urine Yellow (Yellow); Glucose, Dipstick Normal (Normal); Leukocyte Esterase-Dipstick 100 /ul (Negative); Nitrite-Dipstick Negative (Negative); Occult Blood-Urine 25 /ul (Negative); Protein-Dipstick 30 mg/dl (Negative); Urine Bilirubin Dipstick Negative (Negative); Urine Clarity Sl. Cloudy (Clear); Urine Urobilinogen 1 mg/dl (Normal)
[2019-07-02 11:44] LABS: Ketone-Dipstick 150 mg/dl (Negative)
[2019-07-02] MEDS: Ketorolac 15 MG/ML Vial IV (11:45)
[2019-07-02 11:46] LABS: Bacteria 1+ /hpf (None Seen); Squamous Epithelial Cells - UA 10-25 SEEN /hpf (5-10); White Blood Cells 0-5 SEEN /hpf (0-5)
[2019-07-02 11:51] LABS: Anion Gap 6 (5-15); BUN 13 mg/dL (7-18); BUN/Creat Ratio 18.9 RATIO (10-20); Calcium,Total 9.4 mg/dL (8.5-10.1); Chloride 109 mmol/L (98-107); Creatinine, Serum 0.69 mg/dL (0.55-1.02); EST Glomerular Filtration Rate 107 mL/min (>60); Est Glom Filt Rate - Afr Amer 130 mL/min (>60); Estimated Creatinine Clearance 113.63 ml/min; Glucose 94 mg/dL (74-106); Potassium 3.8 mmol/L (3.5-5.1); Sodium Level 141 mmol/L (136-145)
[2019-07-02 12:42] LABS: Lipase 85 U/L (73-393)
[2019-07-02 12:46] LABS: AST(SGOT) 16 U/L (15-37); Alanine Aminotransfer ALT/SGPT 17 U/L (13-56); Albumin, Serum 4.2 g/dL (3.2-5.0); Alkaline Phosphatase 71 U/L (45-117); Bilirubin, Direct 0.34 mg/dL (0.00-0.30); Globulin 4.2 g/dL (2.2-4.2); Protein, Total 8.4 g/dL (6.4-8.2)
[2019-07-02 13:56] VITALS: PULSE 77; RESP 16; O2SAT 100
== END 2019-07-02 13:58 | disposition home or self-care (01) ==
PROVIDERS: Emergency Provider Emergency Medicine; PCP Family Medicine
DX: K80.70 Calculus of gallbladder and bile duct without cholecystitis without obstruction (principal)
CPT/HCPCS: 74177; 80048; 80076; 81001; 83690; 85025; 87635; 96361; 96374; 96375; 99283; G2023; J7030; Q9967; A4216; J2405; U0004

== ENCOUNTER 2020-10-20 21:36 | Emergency (ER) | payer SELFPAY ==
[2020-10-20 21:37] VITALS: BP 117/78; PULSE 73; RESP 18; TEMP 36.7; O2SAT 99; BMI 27.4
--- NOTE | 2020-10-20 23:41 | EX.ED.DYSGE1 ---
HPI History of Present Illness Chief Complaint: Numb/Ting Narrative Narrative: Patient presenting with a paresthesia in the left forearm radiates anteriorly on the volar surface down to her wrist. She denies any trauma. She denies any loss of function. She has sensation throughout the left arm. She denies any medical problems. She states she was googling causes of paresthesias and became anxious thought maybe she was having a stroke. Patient denies any other symptoms. [facility] Medical History Endometriosis Threatened Home Medications NK 07/02/19 [History Last Taken Unknown] Allergy/AdvReac Type Severity Reaction Status Date / Time No Known Allergies Allergy Verified 10/20/20 21:41 Surgical History History of cholecystectomy Hx of hysterectomy Social History Smoking Status: Never smoker ROS ROS ED Constitutional Constitutional ED: Denies chills or fever(s) Eyes Eyes: Denies blurry vision or diplopia ENT ENT ED: Denies rhinorrhea or sore throat Cardiovascular Cardiovascular: Denies chest pain or palpitations Respiratory/Chest Respiratory/Chest: Denies cough or dyspnea Gastrointestinal Gastrointestinal: Denies abdominal pain or nausea Genitourinary Genitourinary ED: Denies dysuria or hematuria Musculoskeletal Musculoskeletal: Denies arthralgias or myalgias Integumentary Denies Abrasions or rash Neurologic Neurologic: Reports paresthesias LUE; Denies headache(s) or weakness EXAM Physical Exam Const Vital Signs: 10/20/20 21:37 Temperature 98.0 F Temperature Source Temporal Pulse Rate 73 Respiratory Rate 18 Blood Pressure 117/78 Blood Pressure Mean 91 Pulse Ox 99 Oxygen Delivery Method Room Air Positive well nourished General Appearance ED: NAD HEENT Reports moist mucous membranes Negative for trauma Eyes PERRL and EOMs intact bilaterally Chest Wall inspection of chest normal and palpation of chest normal Resp normal respiratory effort and clear to auscultation bilaterally Cardio regular rate and regular rhythm Extremity Extremity Narrative: Sensation intact in the left upper extremity. She can feel light touch and deep touch on the left forearm. She has full range of motion of the left elbow and the left forearm. Radial pulses 2+. Omer's test normal. Cable Former strength 5/5. Brisk cap refill to all 5 fingers of the left hand. Neuro oriented x3 and CN's II-XII intact bilaterally Sensorium / Orientation: alert Motor Exam: strength 5/5 throughout Psych mental status grossly normal Skin no rashes or lesions noted and no wounds MDM MDM MDM Narrative Medical decision making narrative: Patient does have sensation intact in the left forearm. She states that it is tingling but she can feel me touching. Otherwise motor and sensation are normal. She is neurovascularly intact throughout. Compartments are soft. I do not believe the patient is having a stroke as she is young and otherwise healthy. She is not on any control or anticoagulation. I reviewed the nurse's triage note that says she had symptoms in the left foot as well however she denies this when I asked her. Given this I think the etiology of this tingling sensation is benign. I feel she is safe to be discharged home and I do not believe she needs blood work or imaging. Impression: #1 left forearm paresthesia Discharge Plan Triage Chief Complaint: Numb/Ting ED Provider: Bryon Em Dx/Rx/DC Orders Instructions: ED Paraesthesias Prescriptions: No Action NK RF: 0 Primary Care Provider: Garrett Read Referrals: Garrett Read MD [Primary Care Provider] - Disposition Disposition: Home, Self Care Discharge Date/Time: 10/20/20 23:47
== END 2020-10-20 23:47 | disposition home or self-care (01) ==
LOC: ED 23:46
PROVIDERS: Emergency Provider Student in an Organized Health Care Education/Training Program; PCP Family Medicine
DX: R20.2 Paresthesia of skin (principal)
CPT/HCPCS: 99282

== ENCOUNTER → 2022-06-19 | Outpatient (CLI) | payer SELFPAY ==
[2022-06-25 12:43] LABS: HPV Reflexed? NOT INDICATED
== END | disposition home or self-care (01) ==
LOC: LABSPEC 12:05
PROVIDERS: PCP Family Medicine; Referring Provider Nurse Practitioner Women's Health; Visit Provider Nurse Practitioner Women's Health
DX: Z87.410 Personal history of cervical dysplasia (principal)
CPT/HCPCS: 88175; G0145

== ENCOUNTER → 2022-10-19 | Outpatient (CLI) | payer SELFPAY ==
[2022-10-21 10:10] LABS: Mucous, Urine 0 SEEN /hpf (<or=2+); White Blood Cells 0 SEEN /hpf (0-5)
[2022-10-21 10:40] LABS: Color, Urine Yellow (Yellow); Glucose, Dipstick Normal (Normal); Ketone-Dipstick Negative (Negative); Leukocyte Esterase-Dipstick Negative /ul (Negative); Nitrite-Dipstick Negative (Negative); Occult Blood-Urine 25 /ul (Negative); Protein-Dipstick Negative (Negative); Specific Gravity, Urine 1.015 (1.002-1.030); Urine Bilirubin Dipstick Negative (Negative); Urine Clarity Sl. Cloudy (Clear); Urine Urobilinogen 1 mg/dl (Normal)
[2022-10-21 11:09] LABS: Bacteria 2+ /hpf (None Seen); Red Blood Cells-Urine 0-5 SEEN /hpf (0-5); Squamous Epithelial Cells - UA 10-25 SEEN /hpf (5-10)
== END | disposition home or self-care (01) ==
LOC: LABSPEC 10-21 10:04
PROVIDERS: PCP Family Medicine; Referring Provider Physician Assistant Surgical; Visit Provider Physician Assistant Surgical
DX: R10.9 Unspecified abdominal pain (principal)
CPT/HCPCS: 81001; 87086; 87088

== ENCOUNTER 2022-11-06 17:13 | Emergency (ER) | payer OTHER, SELFPAY ==
[2022-11-06 17:14] VITALS: BP 120/78; PULSE 75; RESP 16; TEMP 36.3; O2SAT 100
--- NOTE | 2022-11-06 17:44 | EX.ED.DYSGE1 ---
HPI History of Present Illness Chief Complaint: Flank Pain Informant: patient Onset/Context/Timing Onset: Yesterday Context: Sudden Onset Timing: Continuous Quality: Sharp Location: Right flank Worsened by: Nothing Relieved by: Nothing Narrative Narrative: Patient presents with right flank pain that began yesterday. Patient states it began rather suddenly. Patient states it has been constant. Patient describes it as sharp. Patient states nothing makes it worse and nothing makes it better. Patient states it radiates into her right lower abdomen. Patient denies any fevers or chills. Patient admits to some nausea but denies any vomiting. Patient admits to some diarrhea. Patient states that she started having some blood in her stools due to the diarrhea. Patient denies any dysuria or hematuria. Patient denies any abnormal vaginal bleeding or discharge. [facility] Medical History Endometriosis Threatened Home Medications NK 11/06/22 [History Last Taken Unknown] Allergy/AdvReac Type Severity Reaction Status Date / Time No Known Allergies Allergy Verified 11/06/22 17:15 Family History Grandfather CVA (cerebral vascular accident) Grandmother Myocardial infarction Surgical History History of cholecystectomy History of loop electrical excision procedure (LEEP) Hx of hysterectomy Social History number of children: 5 current occupational status: unemployed current occupation: [employer] Smoking Status: Never smoker alcohol intake: never substance use type: does not use seatbelt use: always do you feel safe at home: Yes additional social history: - [employer] ROS ROS ED Constitutional Constitutional ED: Denies chills or fever(s) Eyes Eyes: Denies blurry vision or change in vision ENT ENT ED: Denies rhinorrhea or sore throat Cardiovascular Cardiovascular: Denies chest pain or palpitations Respiratory/Chest Respiratory/Chest: Denies cough or dyspnea Gastrointestinal Gastrointestinal: Reports abdominal pain, diarrhea and nausea; Denies vomiting Genitourinary Genitourinary ED: Denies dysuria or hematuria Musculoskeletal Musculoskeletal: Denies back pain or neck pain Integumentary Denies abscess or rash Neurologic Neurologic: Denies headache(s) or weakness Allergic/Immunologic Allergic/Immunologic ED: Denies mouth swelling or urticaria EXAM Physical Exam Const Vital Signs: 11/06/22 17:14 Temperature 97.4 F L Temperature Source Temporal Pulse Rate 75 Respiratory Rate 16 Blood Pressure 120/78 Blood Pressure Mean 92 Pulse Ox 100 Oxygen Delivery Method Room Air Positive well nourished and well developed General Appearance ED: well developed and NAD HEENT Reports moist mucous membranes Neck supple and no JVD Resp normal respiratory effort and clear to auscultation bilaterally Cardio regular rate, regular rhythm and no murmurs GI normal to inspection, nondistended, normoactive bowel sounds Palpation: soft and tender RLQ Back/Spine General Back: CVA tenderness right Extremity normal to inspection General Extremety ED: Negative for edema or tenderness General Extremity: Negative for edema Neuro oriented x3, CN's II-XII intact bilaterally and no sensory deficits noted Sensorium / Orientation: alert Motor Exam: strength 5/5 throughout Psych mental status grossly normal Skin no rashes or lesions noted MDM MDM MDM Narrative Medical decision making narrative: Differential diagnosis includes ureteral calculus, pyelonephritis, appendicitis, and mesenteric adenitis. CT scan of the abdomen pelvis will be obtained to assess for ureteral calculus and appendicitis. CBC will be obtained to assess for leukocytosis and anemia. Basic metabolic profile will be obtained to assess for electrolyte abnormality and renal function. Urinalysis will be obtained to assess for urinary tract infection and hematuria. Serum hCG will be obtained to assess for . Lab Data Attestation: I reviewed the patient's lab results. Lab results narrative: CBC was reviewed and was within normal limits. Basic metabolic profile was reviewed and was within normal limits. Serum hCG was reviewed and was negative. Urinalysis was reviewed. There is no evidence of hematuria or urinary tract infection. Labs: Laboratory Results - last 24 hr 11/06/22 11/06/22 17:55 18:32 WBC 8.4 RBC 4.28 Hgb 12.6 Hct 37.9 MCV 88.6 MCH 29.4 MCHC 33.2 RDW Std Deviation 38.9 RDW Coeff of Foreign 12.2 Plt Count 178 MPV 10.7 Immature Gran % (Auto) 0.200 Neut % (Auto) 69.0 Lymph % (Auto) 25.8 Early % (Auto) 4.1 Eos % (Auto) 0.8 Baso % (Auto) 0.1 Absolute Neuts (auto) 5.8 Absolute Lymphs (auto) 2.18 Nucleated RBC % 0 Sodium 138 Potassium 3.9 Chloride 106 Carbon Dioxide 28.0 Anion Gap 4 L BUN 9 Creatinine 0.77 Estim Creat Clear Calc 102.94 Est GFR (MDRD) Af Amer 112 Est GFR (MDRD) Non-Af 93 BUN/Creatinine Ratio 11.7 Glucose 89 Calcium 9.2 Serum , Qual NEGATIVE Urine Color Yellow Urine Clarity Sl. Cloudy Urine pH 6.0 Ur Specific [place] 1.020 Urine Protein Negative Urine Glucose (UA) Normal Urine Ketones 5 H Urine Occult Blood 25 H Urine Nitrite Negative Urine Bilirubin Negative Urine Urobilinogen Normal Ur Leukocyte Esterase Negative Urine RBC 0 SEEN Urine WBC 0 SEEN Ur Squamous Epith Cells 10-25 SEEN Urine Bacteria 0 SEEN Urine Mucus 0 SEEN Radiography Diagnostic Testing: Clinical Impression(s) from Imaging Studies Abdomen/Pelvis CT 11/06/22 18:04 IMPRESSION: No acute or inflammatory disease or bowel obstruction. Electronically Signed: Benito De Anda MD at 18:58 EDT , CT scan of the abdomen and pelvis was obtained. There is no ureteral calculus. There is no free air or free fluid. There is no acute inflammatory disease or bowel obstruction. This was interpreted by the radiologist and was also independently reviewed by myself. Treatment and Re-Evaluation :: Patient was ordered IV fluids, morphine, and Zofran. Patient declined the morphine. Patient states she does not want any opiate medications. Patient was given a dose of Toradol instead. Patient is feeling better on reevaluation. Patient was advised of her findings. Patient was instructed to complaining of fluids. Patient was instructed take Tylenol or ibuprofen as needed for pain. Patient was instructed to follow-up with her primary care physician in 5 to 7 days. Patient understood and was agreeable with the plan. All questions were answered. Discharge Plan Triage Chief Complaint: Flank Pain ED Provider: Chauncey Ulloa Dx/Rx/DC Orders Clinical Impression: Acute right flank pain Instructions: ED Flank Pain, Uncertain Cause Prescriptions: No Action NK Primary Care Provider: Amilcar Cabral RESIDENTIAL PROPERTY CONSULTANT Referrals: Amilcar Cabral RESIDENTIAL PROPERTY CONSULTANT, RESIDENTIAL PROPERTY CONSULTANT-C [Primary Care Provider] - 5-7 Days Disposition Disposition: Home, Self Care
[2022-11-06] MEDS: 0.9% Normal Saline (1000mL) 1,000 ML 1000 ML IV (17:57)
[2022-11-06] MEDS: Ondansetron 4 MG/2 ML Vial IV (17:57)
--- NOTE | 2022-11-06 18:04 | CT_ITS ---
EXAM: CT ABDOMEN AND PELVIS WITHOUT INTRAVENOUS CONTRAST CLINICAL INDICATION: Right flank pain TECHNIQUE: Helically acquired images were obtained of the abdomen and pelvis without intravenous contrast. CTDIvol = ( 9.47 ) mGy, DLP = ( 527.61 ) mGycm This CT exam was performed using one or more of the following dose reduction techniques: automated exposure control, adjustment of the mA and/or kV according to patient size, and/or use of iterative reconstruction technique. COMPARISON: No relevant prior studies available. FINDINGS: LOWER THORAX: Unremarkable. Lung bases are clear. No cardiomegaly. No significant pericardial effusion. ABDOMEN: LIVER: Unremarkable. Homogeneous. GALLBLADDER AND BILE DUCTS: Unremarkable. No calcified gallstones. No gallbladder distention or wall edema. No intra- or extrahepatic biliary ductal dilation. PANCREAS: Unremarkable. No focal cystic mass. SPLEEN: Unremarkable. Normal size without focal cystic or solid mass. ADRENALS: Unremarkable. No nodules. KIDNEYS AND URETERS: Unremarkable. Normal renal size and position. No hydronephrosis. STOMACH AND BOWEL: Unremarkable. No stomach or bowel distention. No focal inflammatory change. PELVIS: APPENDIX: No evidence of acute appendicitis. BLADDER: Unremarkable. REPRODUCTIVE: Unremarkable as visualized. No mass. ABDOMEN and PELVIS: INTRAPERITONEAL SPACE: Unremarkable. No ascites or other fluid collection. No free air. BONES/JOINTS: Moderate degenerative disease at L5-S1. No suspicious lytic or blastic abnormality. SOFT TISSUES: Unremarkable. No discrete abdominal or pelvic wall hernia. VASCULATURE: Unremarkable. Abdominal aorta is non-dilated. LYMPH NODES: Unremarkable. No enlarged lymph nodes. CT/Abdomen/Pelvis without Cont IMPRESSION: No acute or inflammatory disease or bowel obstruction. Electronically Signed: Benito De Anda MD at 18:58 EDT ,
[2022-11-06 18:15] LABS: Absolute Lymphocyte Count 2.18 X10^3/uL (0.83-4.51); Absolute Neutrophil Count 5.8 X10^3/uL (2.0-7.7); Basophil# 0.01 X10^3/uL; Basophil% 0.1 % (0-1); Eosinophil# 0.07 X10^3/uL; Eosinophils% 0.8 % (0-5); Hematocrit 37.9 % (37-47); Hemoglobin 12.6 g/dL (12.0-15.0); Lymphocyte # 2.18 X10^3/ul (0.83-4.51); Lymphocyte % 25.8 % (19-41); Mean Corp Hgb Conc 33.2 g/dL (32-36); Mean Corpuscular Hgb 29.4 pg (27.0-32.0); Mean Corpuscular Volume 88.6 fL (81-99); Mean Platelet Vol. 10.7 fl (6.2-12.0); Monocyte# 0.35 X10^3/uL; Monocyte% 4.1 % (0-10); NRBC Flagged by Analyzer 0 % (0-5); Neutrophil # 5.81 X10^3/uL (2.7-7.7); Platelet Count 178 K/mm3 (150-450); RBC Distribution Width CV 12.2 % (11.6-14.6); RBC Distribution Width SD 38.9 fl (35.1-43.9); Red Blood Count 4.28 M/mm3 (4.2-5.4); White Blood Count 8.4 K/mm3 (4.4-11.0)
[2022-11-06 18:24] LABS: Internal QC Validated? YES +Cl - CLEAR BKGD; Pregnancy, Serum, hCG Quali. NEGATIVE Negative
[2022-11-06] MEDS: Ketorolac 30 MG/ML Syringe IV (18:24)
[2022-11-06 18:30] LABS: Anion Gap 4 (5-15); BUN 9 mg/dL (7-18); BUN/Creat Ratio 11.7 RATIO (10-20); Calcium,Total 9.2 mg/dL (8.5-10.1); Chloride 106 mmol/L (98-107); Creatinine, Serum 0.77 mg/dL (0.55-1.02); EST Glomerular Filtration Rate 93 mL/min (>60); Est Glom Filt Rate - Afr Amer 112 mL/min (>60); Estimated Creatinine Clearance 102.94 ml/min; Glucose 89 mg/dL (74-106); Potassium 3.9 mmol/L (3.5-5.1); Sodium Level 138 mmol/L (136-145)
[2022-11-06 18:36] LABS: Bacteria 0 SEEN /hpf (None Seen); Mucous, Urine 0 SEEN /hpf (<or=2+); Red Blood Cells-Urine 0 SEEN /hpf (0-5); White Blood Cells 0 SEEN /hpf (0-5)
[2022-11-06 18:37] LABS: Color, Urine Yellow (Yellow); Glucose, Dipstick Normal (Normal); Ketone-Dipstick 5 mg/dl (Negative); Leukocyte Esterase-Dipstick Negative /ul (Negative); Nitrite-Dipstick Negative (Negative); Occult Blood-Urine 25 /ul (Negative); Protein-Dipstick Negative (Negative); Urine Bilirubin Dipstick Negative (Negative); Urine Clarity Sl. Cloudy (Clear); Urine Urobilinogen Normal (Normal)
[2022-11-06 18:43] LABS: Squamous Epithelial Cells - UA 10-25 SEEN /hpf (5-10)
[2022-11-06 19:53] VITALS: PULSE 78; RESP 18; O2SAT 96
== END 2022-11-06 19:54 | disposition home or self-care (01) ==
PROVIDERS: Emergency Provider Emergency Medicine; PCP Nurse Practitioner Family; Visit Provider Emergency Medicine
DX: R10.9 Unspecified abdominal pain (principal)
CPT/HCPCS: 74176; 80048; 81001; 84703; 85025; 96361; 96374; 96375; 99283; J7030; A4216; J2405

== ENCOUNTER → 2023-02-20 | Outpatient (CLI) | payer SELFPAY ==
--- NOTE | 2023-02-20 11:30 | US_ITS ---
EXAM: US LEFT LOWER EXTREMITY NON-VASCULAR, COMPLETE CLINICAL INDICATION: groin lump TECHNIQUE: Real-time ultrasound scan of the left lower extremity with image documentation. COMPARISON: No relevant prior studies available. FINDINGS: SOFT TISSUES: No mass or fluid collection. No foreign body. LYMPH NODES: A 7 mm lymph node noted at the left groin with normal internal architecture. US/Ext Non Vasc Limited/Soft Tiss IMPRESSION: 7 mm left groin node. Electronically Signed: Lew Ugalde MD at 12:49 EST ,
--- OUTSIDE RECORDS SUMMARY | 2023-02-20 13:00 | XMS RPT_ITS | CCD ---
Author Name Unknown Address [address] [place] [address] Organization [facility] Care Team Providers Care Motorcycle Repairer Name Role Phone Ivanauskshahrzad, Saulius Unavailable Unavailable Renan, Saulius Unavailable Unavailable Garrett Read Unavailable Unavailable Garrett Read Unavailable Unavailable Stefania Garcia Unavailable UnavailStefania Brown Unavailable UnavailGarrett Martinez Unavailable Unavailable José Antonio Beckford Unavailable Unavailable Shakeel, José Antonio Unavailable Unavailable Results Test Name Value Interpretation Reference Range Facil ity Encounters Encounter Date Encounter Type Care Provider Facility Start: 01-20-2017 End: 01-20-2017 Emergency department patient visit Garrett Fullero Facility:[facility] Start: 10-30-2016 End: 10-30-2016 Emergency department patient visit Garrett Pinto Braden Facility:[facility] Start: 10-02-2016 End: 10-02-2016 Emergency department patient visit Irene Urrutia Facility:[facility] Payers Date Payer Category Payer Self-pay Progress note 02-23-2021 Note Date & Type Note Facility 02-23-2021 Note HNO ID: [id number] Author: RT Liz(Roger) Service: ? Author Type: Technologist Type: Progress Notes Filed: 02/23/2021 3:49 PM Note Text: Radiology Service Progress Note PATIENT NAME: Lore Coughlin DATE OF SERVICE: February 23, 2021 TIME: 3:48 PM PATIENT IDENTITY VERIFICATION COMPLETED USING TWO (2) IDENTIFIERS: Name and Date of confirmed by patient verbally. FALL SCREENING: Has the patient had 2 falls in the last year or 1 fall with injury or currently using an Ambulatory Assistive Device (Walker, Cane, Wheelchair, Crutches, etc.)? No PATIENT GENDER DATA: Female. status: : No status: NO. PATIENT RELEVANT IMPLANT DATA REVIEWED: Not Applicable RADIOLOGY DEPARTMENT: General X-ray: Exam(s) Completed: Chest X-Ray PERIPHERAL IV DATA: Not applicable SIGNED BY: RT Liz(R) February 23, 2021 3:48 PM [facility] Progress note 02-23-2021 Note Date & Type Note Facility 02-23-2021 Note HNO ID: [id number] Author: Xochitl Carrillo PA-C Service: ? Author Type: Physician Hand Profiler Type: Progress Notes Filed: 02/23/2021 6:40 PM Note Text: Subjective HPI HPI Lore Mckeonr is a 30 year old female who presents today for CC of fever/chills, sore throat since Friday night. Then noted having fevers - Tmax 101. Cough started on Friday. Intermittent and productive with green sputum. Notes that it hurts to cough. States that her scared her and told her she may have pneumonia. Has tried Tylenol and IBU with minimal relief. Pt is unvaccinated. Symptoms include: Fever (?100.4F): Yes or Chills: Yes Cough: Yes Shortness of breath: No or Difficulty breathing: No Fatigue: Yes Muscle aches: Yes Headache: Yes New loss of smell or taste: No Sore throat: Yes Nasal congestion: No or Rhinorrhea: No Nausea: No or Vomiting: No Diarrhea: No - has this at baseline since having GB out OTC meds/remedies that patient has tried: acetaminophen and NSAIDs. High risk category assessment No high risk factors Exposures: Sick contacts? No Family or close contacts with confirmed/probable COVID-19 in last 14 days? No BP 122/68 Pulse 88 Temp 36.2 ?C (97.2 ?F) Resp 16 Wt 81.6 kg (180 lb) LMP 10/04/2015 SpO2 99% BMI 29.07 kg/m? Social History Tobacco Use - Smoking status: Never Smoker - Smokeless tobacco: Never Used Vaping Use - Vaping Use: Never used Substance Use Topics - Alcohol use: Not on file - Drug use: Not on file PAST MEDICAL HISTORY Diagnosis Date - NEGATIVE MEDICAL HISTORY I have confirmed and edited as necessary, the [facility] Review of Systems Constitutional: Negative for chills, fever and malaise/fatigue. HENT: Negative for congestion, ear pain and sore throat. Respiratory: Negative for cough, sputum production, shortness of breath and wheezing. Cardiovascular: Negative for chest pain. Gastrointestinal: Negative for diarrhea. Musculoskeletal: Negative for myalgias. Neurological: Negative for headaches. Objective BP 122/68 Pulse 88 Temp 36.2 ?C (97.2 ?F) Resp 16 Wt 81.6 kg (180 lb) LMP 10/04/2015 SpO2 99% BMI 29.07 kg/m? Physical Exam Constitutional: General: She is not in acute distress. Appearance: She is well-developed. She is ill-appearing (Mild; Generally fatigued appearance.). She is not toxic-appearing. HENT: Head: Normocephalic. Nose: Mucosal edema present. No rhinorrhea. Right Sinus: No maxillary sinus tenderness or frontal sinus tenderness. Left Sinus: No maxillary sinus tenderness or frontal sinus tenderness. Mouth/Throat: Pharynx: Uvula midline. No oropharyngeal exudate or posterior oropharyngeal erythema. Tonsils: No tonsillar abscesses. Eyes: General: Lids are normal. Conjunctiva/sclera: Conjunctivae normal. Cardiovascular: Rate and Rhythm: Normal rate and regular rhythm. Heart sounds: S1 normal and S2 normal. No friction rub. Pulmonary: Effort: Pulmonary effort is normal. Breath sounds: Normal breath sounds. No wheezing, rhonchi or rales. Lymphadenopathy: Head: Right side of head: No submental, submandibular, tonsillar, preauricular, posterior auricular or occipital adenopathy. Left side of head: No submental, submandibular, tonsillar, preauricular, posterior auricular or occipital adenopathy. Cervical: Right cervical: No superficial or posterior cervical adenopathy. Left cervical: No superficial or posterior cervical adenopathy. Neurological: Mental Status: She is alert and oriented to person, place, and time. ASSESSMENT/PLAN: 1. Cough - ICD9: 786.2, ICD10: R05.9 (primary diagnosis) CXR negative for acute pathology. Will tx for suspected viral etiology. Covid and flu ordered; Results will be released to [facility] in 24-48 hours. Discussed quarantine, social distancing, hand washing/proper hygiene. Rest, fluids, OTC medications discussed. Reviewed red flags (ie chest pain, shortness of breath) with patient and when to seek care sooner. Rx for tessalon and scheduled dosing of albuterol inhaler. Discussed medication indications, proper use, and potential adverse effects. All questions and concerns addressed to patient satisfaction. - COVID WITH FLUA+B, ROUTINE - XR CHEST 2V FRONTAL/LAT - ALBUTEROL SULFATE HFA 90 MCG/ACTUATION AEROSOL INHALER - BENZONATATE 100 MG CAPSULE 2. Sore throat - ICD9: 462, ICD10: J02.9 - suspect viral - Alere Strep Test negative, no culture pending - Discussed supportive care treatment with fluids, rest and analgesia. - Call back if drooling, increased temperature, symptoms of dehydration and/or still sick in one week - STREP A MOLECULAR (POC) - COVID WITH FLUA+B, ROUTINE 3. Fever, unspecified fever cause - ICD9: 780.60, ICD10: R50.9 See above - COVID WITH FLUA+B, ROUTINE - XR CHEST 2V FRONTAL/LAT Pt advised to see PCP if symptoms persist or progress. Reviewed red flags with patient and when to seek care soone (more content not included)... [facility] Progress note 02-15-2021 Note Date & Type Note Facility 02-15-2021 Note HNO ID: [id number] Author: RT Joni(Roger) Service: ? Author Type: Rn Urology Type: Progress Notes Filed: 02/15/2021 1:58 PM Note Text: Radiology Service Progress Note PATIENT NAME: Lore Coughlin DATE OF SERVICE: February 15, 2021 TIME: 1:58 PM PATIENT IDENTITY VERIFICATION COMPLETED USING TWO (2) IDENTIFIERS: Name and Date of confirmed by patient verbally. FALL SCREENING: Has the patient had 2 falls in the last year or 1 fall with injury or currently using an Ambulatory Assistive Device (Walker, Cane, Wheelchair, Crutches, etc.)? No PATIENT GENDER DATA: Female. status: : No status: NO. PATIENT RELEVANT IMPLANT DATA REVIEWED: Not Applicable RADIOLOGY DEPARTMENT: CT; Exam(s) Completed: Abdomen/Pelvis PERIPHERAL IV DATA: Not applicable SIGNED BY: RT Luisa(R) February 15, 2021 1:58 PM [facility] Progress note 02-15-2021 Note Date & Type Note Facility 02-15-2021 Note HNO ID: [id number] Author: RT Thor(R) Service: ? Author Type: Technologist Type: Progress Notes Filed: 02/15/2021 11:56 AM Note Text: Radiology Service Progress Note PATIENT NAME: Lore Coughlin DATE OF SERVICE: February 15, 2021 TIME: 11:55 AM PATIENT IDENTITY VERIFICATION COMPLETED USING TWO (2) IDENTIFIERS: Name and Date of confirmed by patient verbally. FALL SCREENING: Has the patient had 2 falls in the last year or 1 fall with injury or currently using an Ambulatory Assistive Device (Walker, Cane, Wheelchair, Crutches, etc.)? No PATIENT GENDER DATA: Female. status: : No status: N/A PATIENT RELEVANT IMPLANT DATA REVIEWED: Not Applicable RADIOLOGY DEPARTMENT: Ultrasound PERIPHERAL IV DATA: Not applicable SIGNED BY: Cherise Damian RDMS February 15, 2021 11:55 AM [facility] Progress note 02-12-2021 Note Date & Type Note Facility 02-12-2021 Note HNO ID: [id number] Author: RT Thor(R) Service: ? Author Type: Technologist Type: Progress Notes Filed: 02/12/2021 3:31 PM Note Text: Radiology Service Progress Note PATIENT NAME: Lore Coughlin DATE OF SERVICE: February 12, 2021 TIME: 3:31 PM PATIENT IDENTITY VERIFICATION COMPLETED USING TWO (2) IDENTIFIERS: Name and Date of confirmed by patient verbally. FALL SCREENING: Has the patient had 2 falls in the last year or 1 fall with injury or currently using an Ambulatory Assistive Device (Walker, Cane, Wheelchair, Crutches, etc.)? No PATIENT GENDER DATA: Female. status: : No status: N/A PATIENT RELEVANT IMPLANT DATA REVIEWED: Not Applicable RADIOLOGY DEPARTMENT: Ultrasound PERIPHERAL IV DATA: Not applicable SIGNED BY: Cherise Damian RDMS February 12, 2021 3:31 PM [facility] Progress note 02-12-2021 Note Date & Type Note Facility 02-12-2021 Note HNO ID: [id number] Author: Joan Lyons APRN.JAMIE Service: ? Author Type: Nurse Practitioner Type: Progress Notes Filed: 02/12/2021 2:25 PM Note Text: This is a 30 year old female who presents today with: Patient presents with: Flank Pain HISTORY OF PRESENT ILLNESS: Lore Coughlin is a 30 year old female. Patient presents with: Flank Pain Patient of Dr. Read here in the office with concerns for kidney infection. Was seen in UC on 02/11/2020, diagnosed with UTI with hematuria, started on Macrobid. Urine culture came back negative. Patient here in the office with complaints of right flank pain and lower abdominal discomfort. Has seen blood in the urine once since UC visit. Pain is a dull an ache that is constant. Has tried heating pad which is mildly helpful. No chance of , H/O partial hyster. No abnormal vaginal discharge. Nausea started last night, has noticed increased urine frequency but urine stream is a dribble. No fever or chills. PAST MEDICAL HISTORY: PAST MEDICAL HISTORY Diagnosis Date - NEGATIVE MEDICAL HISTORY PAST SURGICAL HISTORY Procedure Laterality Date - LAPAROSCOPIC CHOLEYCYSTECTOMY 07/26/2019 Cholecystectomy, lap - PAST SURGICAL HISTORY OF 03/01/15 bilateral tubal occlusion with Filshie clips - PAST SURGICAL HISTORY OF 07/23/2018 [facility], Bilateral salpingectomy Dr Corona ALLERGIES Patient has no known allergies. MEDICATIONS Current Outpatient Medications Medication Sig - nitrofurantoin monohydrate and macrocrystal (MACROBID) 100 mg capsule Take 1 capsule by mouth twice daily with meals for 7 days. - cholestyramine (QUESTRAN) 4 gram packet Take 1 Packet by mouth three times daily with meals. No current facility-administered medications for this visit. FAMILY HISTORY Problem Relation Age of Onset - None Unknown Social History Tobacco Use - Smoking status: Never Smoker - Smokeless tobacco: Never Used Vaping Use - Vaping Use: Never used Substance Use Topics - Alcohol use: Not on file - Drug use: Not on file REVIEW OF SYSTEMS GENERAL: No weight loss, malaise or fevers/chills HEENT: Negative for frequent or significant headaches, No changes in hearing or vision. NECK: Negative for lumps, goiter, pain and significant neck swelling RESPIRATORY: Negative for cough, hemoptysis, wheezing, dyspnea or shortness of breath CARDIOVASCULAR: Negative for chest pain, leg swelling, orthopnea, or palpitations GI: + Right flank pain. : No history of dysuria, frequency or incontinence MUSCULOSKELETAL: Negative for joint pain or swelling. SKIN: Negative for lesions, rash, and itching ENDOCRINE: Negative for cold or heat intolerance, polyuria, polydipsia and goiter NEURO: No history of headaches, syncope, paralysis, seizures or tremors MOOD: Negative for depression, anxiety, or suicidal ideation. EXAM: BP 118/76 Pulse 89 Resp 18 LMP 10/04/2015 SpO2 99% PHYSICAL EXAM: General Appearance: Well appearing, alert, in no acute distress, well-hydrated, well nourished. Skin: Skin color, texture, turgor normal, no suspicious rashes or lesions. Head: Normocephalic, no masses, lesions, tenderness or abnormalities. Eyes: Anicteric sclera. Extraocular movements are intact. Lungs: Lungs clear to auscultation. No wheezing, rhonchi, rales. Heart: RRR without murmur, gallop, or rubs. No ectopy. Abdomen: Positive findings: + suprapubic and Right CVA tenderness noted on exam. Extremities: No deformities, edema, skin discoloration, clubbing or cyanosis. Good capillary refill. Peripheral Pulses: Normal, Capillary refill <2secs, strong peripheral pulses, Pulses palpable. UA: + bili small, ketones, blood. ASSESSMENT/PLAN: 1. Right flank pain - ICD9: 789.09, ICD10: R10.9 (primary diagnosis) - Based off history and exam symptoms may seem consistent with kidney stone - Antibiotic treatment with Cipro 500 mg BID , stop Macrobid. - UA DIP, URINE (POC) - US KIDNEY/BLADDER - URINALYSIS, WITH MICROSCOPIC - CIPROFLOXACIN 500 MG TABLET 2. Decreased urine stream - ICD9: 788.62, ICD10: R39.198 - TAMSULOSIN 0.4 MG CAPSULE Follow-up pending test results or sooner as needed. Discussed treatment plan and patient voices understanding. Patient's questions answered appropriately. Medications and potential side effects were discussed and patient voices understanding. Joan Lyons APRN.SLAB CONDITIONER SUPERVISOR This note was partially generated using [employer] recognition system. Note was reviewed for accuracy. There may be minor misspellings or grammar miscues with Dragon voice recognition. [facility] Progress note 02-10-2021 Note Date & Type Note Facility 02-10-2021 Note HNO ID: [id number] Author: Xochitl Carrillo PA-C Service: ? Author Type: Physician Hand Profiler Type: Progress Notes Filed: 02/10/2021 12:31 PM Note Text: Subjective HPI HPI Lore Mckeonr is a 30 year old female who presents today for CC of urinary frequency and suprapubic discomfort x 2 days. Also notes associated R flank pain, which she had in the past when she had a kidney infection. Pt has tried nothing OTC. BP 116/86 Pulse 74 Temp 36.6 ?C (97.8 ?F) Resp 16 Wt 84.7 kg (186 lb 12.8 oz) LMP 10/04/2015 SpO2 98% BMI 30.16 kg/m? ALLERGIES No Known Allergies There is no problem list on file for this patient. Family History Problem Relation Age of Onset - None Unknown Social History Tobacco Use - Smoking status: Never Smoker - Smokeless tobacco: Never Used Vaping Use - Vaping Use: Never used Substance Use Topics - Alcohol use: Not on file - Drug use: Not on file Review of Systems Constitutional: Negative for chills and fever. Gastrointestinal: Negative for abdominal pain (Suprapubic), constipation, diarrhea, nausea and vomiting. Genitourinary: Positive for flank pain and frequency. Negative for dysuria, hematuria and urgency. Objective BP 116/86 Pulse 74 Temp 36.6 ?C (97.8 ?F) Resp 16 Wt 84.7 kg (186 lb 12.8 oz) LMP 10/04/2015 SpO2 98% BMI 30.16 kg/m? Physical Exam Constitutional: Appearance: Normal appearance. Cardiovascular: Rate and Rhythm: Normal rate and regular rhythm. Heart sounds: S1 normal and S2 normal. No murmur heard. Pulmonary: Effort: Pulmonary effort is normal. Breath sounds: Normal breath sounds. No decreased breath sounds, wheezing, rhonchi or rales. Abdominal: General: Bowel sounds are normal. Palpations: Abdomen is soft. There is no hepatomegaly or splenomegaly. Tenderness: There is no abdominal tenderness. Skin: General: Skin is warm and dry. Findings: No rash. Neurological: Mental Status: She is alert and oriented to person, place, and time. ASSESSMENT/PLAN: 1. Acute cystitis with hematuria - ICD9: 595.0, ICD10: N30.01 (primary diagnosis) UA findings suggestive of UTI, so will go ahead and empirically treat w/ anitibiotics. Recommend plenty of fluids and rest. Will send out for culture and adjust treatment if necessary pending results - NITROFURANTOIN MONOHYDRATE AND MACROCRYSTAL 100 MG ORAL CAP 2. Flank pain - ICD9: 789.09, ICD10: R10.9 - See above - UA DIP, URINE (POC) - URINE CULTURE Pt advised to see PCP if symptoms persist or progress. Reviewed red flags with patient and when to seek care sooner. The patient indicates understanding of these issues and agrees with the plan. Xochitl Carrillo PA-C [facility] Progress note 07-31-2020 Note Date & Type Note Facility 07-31-2020 Note HNO ID: [id number] Author: Joan Lyons APRN.SLAB CONDITIONER SUPERVISOR Service: ? Author Type: Nurse Practitioner Type: Progress Notes Filed: 07/31/2020 9:39 AM Note Text: This is a 29 year old female who presents today with: Patient presents with: Acute Visit: loose stools HISTORY OF PRESENT ILLNESS: Lore Coughlin is a 29 year old female. Patient presents with: Acute Visit: loose stools Patient of Dr. Read here in the office for complaints of diarrhea since having gall bladder removed. Surgery was 07/26/[address] Dowling. Refers since surgery has had loose stools/diarrhea after meals. Not related to any particular foods. Having about 3-4 loose stools per day. Eating a well balanced diet. Denies any abdominal pain, N/V. No urinary symptoms. Denies any mucus or blood in the stool. PAST MEDICAL HISTORY: PAST MEDICAL HISTORY Diagnosis Date - NEGATIVE MEDICAL HISTORY PAST SURGICAL HISTORY Procedure Laterality Date - LAPAROSCOPIC CHOLEYCYSTECTOMY 07/26/2019 Cholecystectomy, lap - PAST SURGICAL HISTORY OF 03/01/15 bilateral tubal occlusion with Filshie clips - PAST SURGICAL HISTORY OF 07/23/2018 [facility], Bilateral salpingectomy Dr Corona ALLERGIES Patient has no known allergies. MEDICATIONS No current outpatient medications on file. No current facility-administered medications for this visit. FAMILY HISTORY Problem Relation Age of Onset - None Unknown Social History Tobacco Use - Smoking status: Never Smoker - Smokeless tobacco: Never Used Vaping Use - Vaping Use: Never used Substance Use Topics - Alcohol use: Not on file - Drug use: Not on file REVIEW OF SYSTEMS GENERAL: No weight loss, malaise or fevers/chills HEENT: Negative for frequent or significant headaches, No changes in hearing or vision. NECK: Negative for lumps, goiter, pain and significant neck swelling RESPIRATORY: Negative for cough, hemoptysis, wheezing, dyspnea or shortness of breath CARDIOVASCULAR: Negative for chest pain, leg swelling, orthopnea, or palpitations GI: + Diarrhea : No history of dysuria, frequency or incontinence MUSCULOSKELETAL: Negative for joint pain or swelling. SKIN: Negative for lesions, rash, and itching ENDOCRINE: Negative for cold or heat intolerance, polyuria, polydipsia and goiter NEURO: No history of headaches, syncope, paralysis, seizures or tremors MOOD: Negative for depression, anxiety, or suicidal ideation. EXAM: BP 130/86 Pulse 64 Resp 16 LMP 10/04/2015 PHYSICAL EXAM: General Appearance: Well appearing, alert, in no acute distress, well-hydrated, well nourished. Head: Normocephalic, no masses, lesions, tenderness or abnormalities. Eyes: Anicteric sclera. Extraocular movements are intact. Lungs: Lungs clear to auscultation. No wheezing, rhonchi, rales. Heart: RRR without murmur, gallop, or rubs. No ectopy. Abdomen: Normal abdominal exam, Abdomen soft, non-tender. Bowel sounds normal. No masses, organomegaly, Negative CVA tenderness. Extremities: No deformities, edema, skin discoloration, clubbing or cyanosis. Good capillary refill. Peripheral Pulses: Normal, Capillary refill <2secs, strong peripheral pulses, Pulses palpable. Neurologic: Gait normal. Reflexes normal and symmetric. Sensation grossly intact. ASSESSMENT/PLAN: 1. Diarrhea, unspecified type - ICD9: 787.91, ICD10: R19.7 - Will get lab work completed to rule out any acute causes of her symptoms. - Directed the patient to take cholestyramine prior to meals. - Red flag symptoms given to this patient, she verbalizes understanding when to seek emergency care. - If symptoms do not improve I have provided the patient with a consult to general surgery to discuss these issues with her surgeon. - CMP (CMP) (FOR [facility] USE) - CBC + DIFF - LIPASE (LIPA) (FOR [facility] USE) - AMYLASE BLD - CHOLESTYRAMINE (WITH SUGAR) 4 GRAM POWDER FOR SUSP IN A PACKET - CONSULT TO GENERAL SURGERY Follow-up as needed or sooner if symptoms get worse or do not improve. Joan Lyons APRN.SLAB CONDITIONER SUPERVISOR This note was partially generated using [employer] voice recognition system. Note was reviewed for accuracy. There may be minor misspellings or grammar miscues with [employer] voice recognition. [facility] Summary Purpose Family History No Family History Records FoundNo Family History Records FoundNo Family History Records Found Advance Directives No Advanced Directives Records FoundNo Advanced Directives Records FoundNo Advanced Directives Records Found Additional Source Comments INFORMATION SOURCE (unrecogn ized section and content) DATE CREATED AUTHOR AUTHOR'S ORGANIZ ATION 07/28/2019 [facility] DATE CREATED AUTHOR AUTHOR'S ORGANIZ ATION 04/29/2021 [facility] FOR RECORDS PERTAINING TO PATIENTS WHO ARE OR HAVE BEEN ENROLLED IN A CHEMICAL DEPENDENCY/SUBSTANCEABUSE PROGRAM, SOME INFORMATION MAY BE OMITTED. This clinical summary was aggregated from multiple sources. Caution should be exercised in using it in the provision of clinical care. This summary normalizes information from multiple sources, and as a consequence, information in this document may materially change the coding, format and clinical context of patient data. In addition, data may be omitted in some cases. CLINICAL DECISIONS SHOULD BE BASED ON THE PRIMARY CLINICAL RECORDS. [facility] [employer] [facility]. provides no warranty or guarantee of the accuracy or completeness of information in this document.
== END | disposition home or self-care (01) ==
PROVIDERS: PCP Nurse Practitioner Family; Referring Provider Advanced Practice Midwife; Visit Provider Advanced Practice Midwife
DX: I89.0 Lymphedema, not elsewhere classified (principal)
CPT/HCPCS: 76882

== ENCOUNTER 2023-05-18 19:34 | Emergency (ER) | payer OTHER, SELFPAY ==
[2023-05-18 19:35] VITALS: BP 132/87; PULSE 82; RESP 16; TEMP 36.6; O2SAT 99; BMI 31.1
[2023-05-18 19:58] LABS: Mucous, Urine 0 SEEN /hpf (<or=2+)
[2023-05-18 20:01] LABS: Color, Urine Yellow (Yellow); Glucose, Dipstick Normal (Normal); Ketone-Dipstick Negative (Negative); Leukocyte Esterase-Dipstick Negative /ul (Negative); Nitrite-Dipstick Negative (Negative); Occult Blood-Urine 50 /ul (Negative); Protein-Dipstick Negative (Negative); Specific Gravity, Urine 1.015 (1.002-1.030); Urine Bilirubin Dipstick Negative (Negative); Urine Clarity Clear (Clear); Urine Urobilinogen Normal (Normal)
[2023-05-18 20:05] LABS: Internal QC Validated? YES +Cl - CLEAR BKGD; Red Blood Cells-Urine 5-10 SEEN /hpf (0-5); White Blood Cells 0-5 SEEN /hpf (0-5)
[2023-05-18 20:06] LABS: Pregnancy, Urine Negative Negative; Record Kit Lot#,Urine Preg 718086
[2023-05-18 20:07] LABS: Bacteria 3+ /hpf (None Seen); Squamous Epithelial Cells - UA 25-50 SEEN /hpf (5-10)
--- NOTE | 2023-05-18 20:15 | EDS_ITS ---
HPI <DORINDA Smith - Last Filed: 05/18/23 20:16> History of Present Illness Chief Complaint: Flank Pain Narrative Narrative: 3 days ago patient developed right flank pain that moved down to her right lower abdomen came and went throughout the day. She had it briefly yesterday and today but it was much less intense. Nothing makes it better or worse. She has no fever, chills, change in appetite, nausea or vomiting, or bladder or bowel changes. She was concerned this could be her appendix. She has a history of cholecystectomy and partial hysterectomy. She had 1 remote kidney stone and states she does not necessarily think this feels similar. [facility] <DORINDA Smith - Last Filed: 05/18/23 20:16> [facility] Medical History (Updated 05/18/23 @ 21:04 by DORINDA Smith) Acute pharyngitis, unspecified Endometriosis Threatened Home Medications NK 05/18/23 [History Last Taken Unknown] Allergy/AdvReac Type Severity Reaction Status Date / Time No Known Allergies Allergy Verified 05/18/23 19:37 Family History Grandfather CVA (cerebral vascular accident) Grandmother Myocardial infarction Surgical History History of cholecystectomy History of loop electrical excision procedure (LEEP) Hx of hysterectomy Social History number of children: 5 current occupational status: unemployed current occupation: [employer] Smoking Status: Never smoker alcohol intake: never substance use type: does not use seatbelt use: always do you feel safe at home: Yes additional social history: - [employer] ROS <DORINDA Smith - Last Filed: 05/18/23 20:16> ROS ED ROS Narrative Constitutional: Negative for fever, chills, malaise. CVS: Negative for chest pain. Respiratory: Negative for shortness of breath, cough. GI: Positive for abdominal pain. Negative for vomiting, diarrhea, constipation, melena, hematochezia. : Negative for dysuria, hematuria or frequency. EXAM <DORINDA Smith - Last Filed: 05/18/23 20:16> Physical Exam Narrative Exam Narrative: CONST: Patient sitting in no acute distress. EYES: Normal inspection. ENT: Normal inspection, moist mucous membranes. NECK: Normal inspection. RESP: No respiratory distress, CTAB. CVS: Regular rate and rhythm, no murmur, no gallop. ABD: Soft and nontender, no guarding or rebound, nondistended, no McBurney's point tenderness. Back: Normal inspection, no CVA tenderness. SKIN: Color normal, no rash, warm, dry, intact. EXTREMITIES: Normal appearance, no pedal edema. NEURO: Alert and answering questions appropriately. PSYCH: Normal affect. Const Vital Signs: 05/18/23 19:35 Temperature 97.9 F Temperature Source Temporal Pulse Rate 82 Respiratory Rate 16 Blood Pressure 132/87 H Blood Pressure Mean 102 Pulse Ox 99 Oxygen Delivery Method Room Air <Dr. Sunny Kruse MD - Last Filed: 05/18/23 21:11> Physical Exam Const Vital Signs: 05/18/23 19:35 Temperature 97.9 F Temperature Source Temporal Pulse Rate 82 Respiratory Rate 16 Blood Pressure 132/87 H Blood Pressure Mean 102 Pulse Ox 99 Oxygen Delivery Method Room Air MDM <DORINDA Smith - Last Filed: 05/18/23 20:16> [facility] Lab Data Labs: Laboratory Results - last 24 hr 05/18/23 19:49 Urine Color Yellow Urine Clarity Clear Urine pH 7.0 Ur Specific [place] 1.015 Urine Protein Negative Urine Glucose (UA) Normal Urine Ketones Negative Urine Occult Blood 50 H Urine Nitrite Negative Urine Bilirubin Negative Urine Urobilinogen Normal Ur Leukocyte Esterase Negative Urine RBC 5-10 SEEN Urine WBC 0-5 SEEN Ur Squamous Epith Cells 25-50 SEEN Urine Bacteria 3+ Urine Mucus 0 SEEN Urine Test Negative <Dr. Sunny Kruse MD - Last Filed: 05/18/23 21:11> [facility] Narrative Medical decision making narrative: I have personally performed a face to face assessment of the patient and have reviewed the SHIRIN Note. I performed a substantive portion of the visit including all aspects of the following. My alcazar findings include: History is 32-year-old female right flank pain for 3 days. No fall injury or trauma. Prior history of 1 kidney stone. Passed it without any surgical intervention. Denies any recent dysuria or fever. Pain is worse with movement. Exam is [well-appearing 32-year-old female. Sitting upright in bed. Vital signs stable afebrile. H EENT exam normal. Pupils are reactive light. Moist mucous membranes. No facial droop. Neck nontender no lymphadenopathy. Lungs clear to auscultation bilaterally. Heart regular rhythm no murmur. Chest wall and ribs nontender. Abdomen soft nontender. Moving all 4 extremities. 5 out of 5 wet trimmer strength. Dorsi plantarflexion intact. Neurologically she is awake and alert no focal motor deficits. Back exam mild right posterior soft tissue tenderness. Worse with movement. No redness or warmth. No bruising. No discoloration.] Medical Decision Making [32-year-old female right flank pain. UA is contaminated but shows no obvious infection with no nitrates and no white cells. She is having no dysuria or frequency. I discussed with the patient if she wanted a CT to rule out a kidney stone she would like to hold off at this time. This will be treated as potentially musculoskeletal pain with Tylenol Motrin. Hot shower, warm bath and massage if not improving she knows to return to get a CAT scan to be evaluated for possible kidney stone.] Other additions or changes: [None] Lab Data Attestation: I reviewed the patient's lab results. Lab results narrative: Mg UA is contaminated. No nitrates. No white cells. Labs: Laboratory Results - last 24 hr 05/18/23 19:49 Urine Color Yellow Urine Clarity Clear Urine pH 7.0 Ur Specific [place] 1.015 Urine Protein Negative Urine Glucose (UA) Normal Urine Ketones Negative Urine Occult Blood 50 H Urine Nitrite Negative Urine Bilirubin Negative Urine Urobilinogen Normal Ur Leukocyte Esterase Negative Urine RBC 5-10 SEEN Urine WBC 0-5 SEEN Ur Squamous Epith Cells 25-50 SEEN Urine Bacteria 3+ Urine Mucus 0 SEEN Urine Test Negative Discharge Plan Triage Chief Complaint: Flank Pain ED Midlevel Provider: Virgie Boone ED Provider: Sunny Kruse Dx/Rx/DC Orders Clinical Impression: Acute right flank pain Instructions: ED Flank Pain, Uncertain Cause Prescriptions: No Action NK Primary Care Provider: Amilcar Cabral [employer] Referrals: Amilcar Cabral [employer], [facility] [employer]-C [Primary Care Provider] - Activity Restrictions/Additional Instructions: Alternate Tylenol and Motrin as needed. If pain becomes more severe or you develop new or worsening symptoms such as fever, vomiting, burning with urination etc. please be reevaluated Disposition Disposition: Home, Self Care
[2023-05-18 21:35] VITALS: BP 123/90; PULSE 68; RESP 18; TEMP 36.7; O2SAT 98
== END 2023-05-18 21:10 | disposition home or self-care (01) ==
PROVIDERS: Physician Assistant; Emergency Provider Emergency Medicine; PCP Nurse Practitioner Family; Visit Provider Emergency Medicine
DX: R10.9 Unspecified abdominal pain (principal)
CPT/HCPCS: 81001; 81025; 99282

== ENCOUNTER → 2023-09-29 | Outpatient (CLI) | payer SELFPAY ==
--- NOTE | 2023-09-29 07:24 | US_ITS ---
STUDY: SUPERFICIAL ULTRASOUND - LEFT AXILLARY MASS. REASON FOR EXAM: Female, 32 years old. Left Axilla mass TECHNIQUE: A superficial ultrasound was performed with real-time and static downing-scale imaging. COMPARISON: None. FINDINGS: Sonographic imaging of the left axilla was obtained. The palpable lump corresponds to a 2.3 cm x 2.5 cm x 0.8 cm benign appearing lymph node. US/Ext Non Vasc Limited/Soft Tiss IMPRESSION: The palpable lump corresponds to a 2.3 cm x 2.5 cm x 0.8 cm benign appearing lymph node. Electronically Signed: Johnathan Salazar MD at 15:01 EDT ,
== END | disposition home or self-care (01) ==
PROVIDERS: PCP Nurse Practitioner Family; Referring Provider Nurse Practitioner Women's Health; Visit Provider Nurse Practitioner Women's Health
DX: R22.32 Localized swelling, mass and lump, left upper limb (principal)
CPT/HCPCS: 76882

== ENCOUNTER → 2024-04-26 | Outpatient (CLI) | payer SELFPAY ==
--- NOTE | 2024-04-26 11:54 | US_ITS ---
PROCEDURE: EXT NON VASC LIMITED/SOFT TISS REASON FOR EXAM: MASS IN LEFT AXILLA/CHEST TECHNIQUE: Ultrasound imaging of the left axilla was obtained.. COMPARISON: None. FINDINGS: The palpable lump was examined with ultrasound. The palpable abnormality corresponds to a 2 cm x 2.2 cm x 0.5 cm isoechoic nodule. No evidence of increased vascularity. This may represent a small lipoma. US/Ext Non Vasc Limited/Soft Tiss IMPRESSION: The palpable lump corresponds to a 2 cm x 2.2 cm x 0.5 cm isoechoic nodule most likely representing a lipoma. Reading Location: [place] [id number]
== END | disposition home or self-care (01) ==
PROVIDERS: PCP Nurse Practitioner Family; Referring Provider Advanced Practice Midwife; Visit Provider Advanced Practice Midwife
DX: R22.32 Localized swelling, mass and lump, left upper limb (principal)
CPT/HCPCS: 76882